=== PATIENT | male | born 1930 | race Caucasian/White ===

== ENCOUNTER → 2017-05-23 | Outpatient (CLI) | payer OTHER ==
[~2017-05-23] MED LIST: TNRUNK; ZCRUNK
--- NOTE | 2017-05-23 13:59 | DIAGNOSTIC IMAGING REPORT ---
LUMBAR SPINE W/O CONTRAST HISTORY: Back pain. Right leg pain. M48.062 R29.2 R29.898 TECHNIQUE: Multiplanar multisequence MRI of the lumbar spine was performed without the use of contrast. COMPARISON: None. FINDINGS: For the purpose of the report the L5-S1 disc space will be located on axial image 27 of 30. Signal characteristics of the vertebral bodies are unremarkable. Significant degenerative disc change L5-S1. Mild degenerative change throughout the remainder the lumbar region. L1-L2: No significant central canal or neural foraminal narrowing. L2-L3: Minimal broad-based disc bulge. Minimal impact anterior thecal sac. L3-L4: Mild/moderate multifactorial narrowing of the spinal canal. Mild narrowing neuroforamina bilaterally. L4-L5: Severe multifactorial narrowing of the spinal canal. Significant narrowing of the neuroforamina bilaterally. There is a combination of broad-based disc herniation and considerable hypertrophic change of the posterior elements. L5-S1: Mild right posterior bulging disc. Moderate compromise right neuroforamina. Left neural foramina is patent. IMPRESSION: 1. Severe multifactorial spinal stenosis L4-L5. 2. Considerable narrowing of the neuroforamina bilaterally. 3. Mild/moderate multifactorial narrowing of spinal canal at L3-L4. 4. Right posterior bulging disc L5-S1 5. Minimal broad-based disc bulge L2-L3. The above report was generated using voice recognition software. It may contain grammatical, syntax or spelling errors. Electronically signed by: Alejandro Dowling M.D. 05/23/2017 1:58 PM Dictated Date/Time: 05/23/2017 1:44 PM
== END | disposition home or self-care (01) ==
LOC: C.MRIBC 12:47
PROVIDERS: ATTEND Physician Assistant
DX: M48.062 Spinal stenosis, lumbar region with neurogenic claudication (principal); R29.2 Abnormal reflex; R29.898 Other symptoms and signs involving the musculoskeletal system

== ENCOUNTER 2021-09-03 15:30 | Inpatient (IN) ==
[2021-09-03] MEDS ORDERED: SODIUM CHLORIDE 0.9% 1000ML 500 ML IV ONE (16:05)
--- NOTE | 2021-09-03 16:09 | Emergency Department Note ---
Impression & Plan Generalized weakness, Elevated troponin, Acute confusion, Acute hyperglycemia ED Provider Note Name: SAVLADOR SANCHEZ Age: 89 Sex: M Arrives Via: Walk-In Informant: Patient, Daughter ED Provider: Jesus Lazo MD Chief Complaint: Weakness Impression: As per impressions above Medical Decision Makin-year-old gentleman with history of BPH, CKD, DM 2, hypertension and Alzheimer's dementia arrives for evaluation of worsening weakness over the last 48 hours. He did start a new Alzheimer's med about a week ago and initially had been doing well. Over the last 2 days though he has been quite weak somewhat confused and yesterday slipped to the floor with inability to get up. Due to this worsening weakness was sent to the ER for further evaluation. Patient no significant distress though does appear somewhat dehydrated. He was given some fluids and seems or perked up somewhat. His labs are remarkable for an elevated blood sugar as well as an elevated troponin. EKG is without any clear evidence of ischemia though there is some unusual T wave abnormalities anteriorly. He has no chest pain, shortness of breath, syncope and thus it seems unlikely this is ACS. However in the setting of these findings I do think further work-up is indicated. Patient is comfortable with this plan as his daughter. Patient is in no distress at time of hospitalization. We will hold off on blood thinners until further work-up is obtained. Prior Medical Record and Triage/Nursing Notes reviewed by Me Additional history obtained from chart & daughter Differentials:Infection, dehydration, metabolic abnormality, hypo/h yperglycemia, electrolyte disturbance, anemia, hypoxia, cardiac sources, intracerebral event, toxicologic, neurologic, as well as other pathologies. Vital Signs: reviewed and remarkable for no significant abnormalities Interventions: nss bolus Labs:Reviewed and remarkable for + trop, + glucose Imaging:X ray results are stated below per my interpretation: Chest: 1 view: No infiltrate, no effusion, normal cardiac border. Radiologist interpretation reviewed by me: ct head no acute findings EKG:Per My Interpretation: Indication weakness: NSR 71 bpm, qtc 419. Anterior T wave inversions non-specific. No Ectopy. No Ischemia. Compared to EKG 06/16/20, no significant changes besides anterior T wave inversions Cardiac/Tele Monitoring: Cardiac Monitoring: An Order was placed for continuous cardiac monitoring. The monitor shows a rate of 70 with a normal sinus rhythm. Consults:Dr Chele Gonzalez hospitalist Plan: Disposition:Hospitalization. Condition: Good History of Present Illness: 89-year-old gentleman arrives for evaluation of weakness. Patient with 48 hours worsening weakness and confusion. Yesterday he slid out of bed and was unable to get up. This is unusual for him as he is usually active mobile and able to interact without problems. Worsening exhaustion and confusion throughout the day. Associated with a runny nose and mild cough. He also notes he has been urinating more often. No fevers, chills, headache, neck pain, shortness of breath, chest pain, abdominal pain, back pain, nausea, vomiting, rashes, bleeding/bruising or other concerning signs or symptoms. No medications prior to arrival. Any exertion makes worse rest makes better. Denies previous issues with severe weakness like this before. Has been taking his medications as prescribed. As advised by medical team at [facility] to come to ER for further evaluation. Last COVID test was last week which was negative. ROS: See above HPI for pertinent positives & negatives. A total of 10 systems reviewed and were otherwise negative. Past Medical History:Hypertension, GERD, hyperlipidemia Past Surgical History:none Family History:non-contributory Social History:Lives at [facility], no smoking, no alcohol Home Medications:See Below Allergies:nkda Vitals:Blood Pressure: 142/79, Pulse 74, RR 18, T 36.5C, O2 93% on RA Physical Exam: GENERAL: Patient is tired appearing and in mild distress. EYES: No scleral icterus, unremarkable pupils. ENT: Mucous membranes dry, no nasal congestion. NECK: No masses appreciated, nomeningismus, trachea is midline. RESPIRATORY: No dyspnea. Clear to auscultation and equal bilaterally. No wheeze, no rhonchi. CARDIOVASCULAR: Regular rate and rhythm.No murmurs, rubs, gallops appreciated. GASTROINTESTINAL: Abdomen soft, non-tender, no peritonitis.Bowel sounds positive.No masses appreciated. BACK: No midline tenderness, no CVA tenderness EXTREMITIES: Normal motion all extremities, no cyanosis, no edema. NEUROLOGIC: Awake, slow speech, mild confusion, forgetful, no weakness of arms or legs, no facial weakness appreciated. SKIN: No rash, no jaundice, no diaphoresis. PSYCH: Appropriate GCS: 15 ED Course: Times/Reassessments: Does appear somewhat better after IV fluids though due to confusion and work-up findings I think is reasonable for hospitalization he and daughter agree. Jesus Lazo MD Past Med/Surg History Medical History (Updated 09/03/21 @ 20:27 by Jesus Lazo MD) Alzheimer's dementia BPH (benign prostatic hyperplasia) CKD (chronic kidney disease), stage III DM type 2 (diabetes mellitus, type 2) HTN (hypertension) Surgical History (Updated 09/03/21 @ 20:22 by THERESA Santos) No significant past surgical history Social History Smoking Status: Never smoker Preferred Language: Stateless Feels Safe at Home: Yes Allergies Allergies Allergy/AdvReac Type Severity Reaction Status Date / Time No Known Allergies Allergy Unverified 09/03/21 18:16 Home Meds Home Medications Medication Instructions Recorded Confirmed atenolol 25 mg tablet 25 mg PO DAILY 06/16/20 09/03/21 coenzyme Q10 30 mg capsule (CoQ-10) 0 mg PO DAILY 06/16/20 09/03/21 multivitamin 1 tab PO DAILY 06/16/20 09/03/21 aspirin 81 mg tablet 81 mg PO DAILY 09/03/21 09/03/21 cholecalciferol (vitamin D3) 25 0 mcg PO DAILY 09/03/21 09/03/21 mcg (1,000 unit) capsule cyanocobalamin (vitamin B-12) 500 0 mcg PO DAILY 09/03/21 09/03/21 mcg tablet donepezil 5 mg tablet 5 mg PO DAILY 09/03/21 09/03/21 escitalopram oxalate 10 mg tablet 10 mg PO DAILY 09/03/21 09/03/21 polyethylene glycol 3350 17 17 g PO DAILY PRN 09/03/21 09/03/21 gram/dose oral powder (Miralax) Results & Data (ED) Vital Signs Vital Signs - 24 hr 09/03/21 15:32 09/03/21 16:10 09/03/21 16:21 Temperature 36.5 C Temperature Source Temporal Artery Scan Pulse Rate 74 Pulse Rate [Right Finger] 69 Respiratory Rate 18 16 Respiratory Effort / Characteristics Non-Labored Spontaneous Non-Labored Respiratory Depth Normal Normal Respiratory Pattern Regular Blood Pressure 142/79 H Blood Pressure [Right Arm] 164/82 H Blood Pressure Mean 100 Blood Pressure Mean [Right Arm] 109 Blood Pressure Position Sitting Pulse Oximetry 93 95 Oxygen Delivery Method Room Air Room Air Sepsis Recent Fever Within 48 Hours No Sepsis New/Unexplained Change in Mental Status Yes Sepsis Action Taken by Nursing No Action Required 09/03/21 18:26 Temperature Temperature Source Pulse Rate Pulse Rate [Right Finger] 70 Respiratory Rate 18 Respiratory Effort / Characteristics Non-Labored Respiratory Depth Normal Respiratory Pattern Blood Pressure Blood Pressure [Right Arm] 170/88 H Blood Pressure Mean Blood Pressure Mean [Right Arm] 115 Blood Pressure Position Pulse Oximetry 93 Oxygen Delivery Method Sepsis Recent Fever Within 48 Hours Sepsis New/Unexplained Change in Mental Status Sepsis Action Taken by Nursing Laboratory Data Result diagrams: 09/03/21 16:00 09/03/21 16:00 Lab Results 09/03/21 09/03/21 09/03/21 Range/Units 16:00 16:00 16:00 WBC 16.07 H (4.8-10.8) K/uL RBC 4.84 (4.7-6.1) M/uL Hgb 15.7 (14.0-18.0) g/dL Hct 44.6 (42-52) % MCV 92.1 (80-100) fL MCH 32.4 (25-34) pg MCHC 35.2 (32-36) g/dL RDW Std Deviation 43.4 (36.4-46.3) fL RDW Coeff of Betsy 12.9 (11.5-14.5) % Plt Count 246 (130-400) K/uL MPV 10.1 (7.4-10.4) fL Immature Gran % (Auto) 0.6 % Neut % (Auto) 70.0 % Lymph % (Auto) 12.8 % [place] % (Auto) 15.7 % Eos % (Auto) 0.8 % Baso % (Auto) 0.1 % Neut # (Auto) 11.25 H (1.4-6.5) K/uL Lymph # (Auto) 2.06 (1.2-3.4) K/uL [place] # (Auto) 2.52 H (0.11-0.59) K/uL Eos # (Auto) 0.13 (0-0.5) K/uL Baso # (Auto) 0.02 (0-0.2) K/uL Immature Gran # (Auto) 0.09 H (0.00-0.02) K/uL Sodium 136 (136-145) mmol/L Potassium 4.4 (3.5-5.1) mmol/L Chloride 102 (98-107) mmol/L Carbon Dioxide 25 (21-32) mmol/L Anion Gap 9 (3-11) BUN 23 (6-23) mg/dl Creatinine 1.17 (0.6-1.4) mg/dl Est Cr Clr Drug Dosing Not Reportable Est GFR ( Amer) 63.7 ml/min Est GFR (Non-Af Amer) 54.9 ml/min BUN/Creatinine Ratio 19.7 (10-20) Glucose 247 H (70-99(Fasting)) mg/dl Calcium 9.8 (8.5-10.1) mg/dl Magnesium 1.9 (1.7-2.4) mg/dl Total Bilirubin 0.9 (0.2-1.0) mg/dl AST 21 (13-39) U/L ALT 15 (7-52) U/L Alkaline Phosphatase 92 (34-104) U/L Total Creatine Kinase (30-223) U/L Troponin I High Sens 110.5 H* (0-20) pg/ml Total Protein 6.6 (6.0-8.3) gm/dl Albumin 4.0 (3.4-5.0) gm/dl Globulin 2.6 (2.5-4.0) gm/dl Albumin/Globulin Ratio 1.5 (0.9-2) Procalcitonin (0-0.5) ng/ml Urine Color Urine Appearance (Clear) Urine pH (4.5-7.5) Ur Specific [place] (1.000-1.030) Urine Protein (Negative) Urine Glucose (UA) (Negative) Urine Ketones (Negative) Urine Blood (Negative) Urine Nitrite (Negative) Urine Bilirubin (Negative) Urine Urobilinogen (Negative) Ur Leukocyte Esterase (Negative) Urine WBC (Auto) (0-5) /hpf Urine RBC (Auto) (0-4) /hpf U Hyaline Cast (Auto) (0-5) /lpf U Epithel Cells (Auto) (0-5) /lpf Urine Bacteria (Auto) (Negative) SARS-CoV-2 (PCR) (Negative) Influenza Type A (PCR) (Neg) Influenza Type B (PCR) (Neg) RSV (RT-PCR) (Neg) 09/03/21 09/03/21 09/03/21 Range/Units 16:00 16:00 16:13 WBC (4.8-10.8) K/uL RBC (4.7-6.1) M/uL Hgb (14.0-18.0) g/dL Hct (42-52) % MCV (80-100) fL MCH (25-34) pg MCHC (32-36) g/dL RDW Std Deviation (36.4-46.3) fL RDW Coeff of Betsy (11.5-14.5) % Plt Count (130-400) K/uL MPV (7.4-10.4) fL Immature Gran % (Auto) % Neut % (Auto) % Lymph % (Auto) % [place] % (Auto) % Eos % (Auto) % Baso % (Auto) % Neut # (Auto) (1.4-6.5) K/uL Lymph # (Auto) (1.2-3.4) K/uL [place] # (Auto) (0.11-0.59) K/uL Eos # (Auto) (0-0.5) K/uL Baso # (Auto) (0-0.2) K/uL Immature Gran # (Auto) (0.00-0.02) K/uL Sodium (136-145) mmol/L Potassium (3.5-5.1) mmol/L Chloride (98-107) mmol/L Carbon Dioxide (21-32) mmol/L Anion Gap (3-11) BUN (6-23) mg/dl Creatinine (0.6-1.4) mg/dl Est Cr Clr Drug Dosing Est GFR ( Amer) ml/min Est GFR (Non-Af Amer) ml/min BUN/Creatinine Ratio (10-20) Glucose (70-99(Fasting)) mg/dl Calcium (8.5-10.1) mg/dl Magnesium (1.7-2.4) mg/dl Total Bilirubin (0.2-1.0) mg/dl AST (13-39) U/L ALT (7-52) U/L Alkaline Phosphatase (34-104) U/L Total Creatine Kinase 196 (30-223) U/L Troponin I High Sens (0-20) pg/ml Total Protein (6.0-8.3) gm/dl Albumin (3.4-5.0) gm/dl Globulin (2.5-4.0) gm/dl Albumin/Globulin Ratio (0.9-2) Procalcitonin 0.19 (0-0.5) ng/ml Urine Color Urine Appearance (Clear) Urine pH (4.5-7.5) Ur Specific [place] (1.000-1.030) Urine Protein (Negative) Urine Glucose (UA) (Negative) Urine Ketones (Negative) Urine Blood (Negative) Urine Nitrite (Negative) Urine Bilirubin (Negative) Urine Urobilinogen (Negative) Ur Leukocyte Esterase (Negative) Urine WBC (Auto) (0-5) /hpf Urine RBC (Auto) (0-4) /hpf U Hyaline Cast (Auto) (0-5) /lpf U Epithel Cells (Auto) (0-5) /lpf Urine Bacteria (Auto) (Negative) SARS-CoV-2 (PCR) NEGATIVE (Negative) Influenza Type A (PCR) Negative (Neg) Influenza Type B (PCR) Negative (Neg) RSV (RT-PCR) Negative (Neg) 09/03/21 Range/Units 16:30 WBC (4.8-10.8) K/uL RBC (4.7-6.1) M/uL Hgb (14.0-18.0) g/dL Hct (42-52) % MCV (80-100) fL MCH (25-34) pg MCHC (32-36) g/dL RDW Std Deviation (36.4-46.3) fL RDW Coeff of Betsy (11.5-14.5) % Plt Count (130-400) K/uL MPV (7.4-10.4) fL Immature Gran % (Auto) % Neut % (Auto) % Lymph % (Auto) % [place] % (Auto) % Eos % (Auto) % Baso % (Auto) % Neut # (Auto) (1.4-6.5) K/uL Lymph # (Auto) (1.2-3.4) K/uL [place] # (Auto) (0.11-0.59) K/uL Eos # (Auto) (0-0.5) K/uL Baso # (Auto) (0-0.2) K/uL Immature Gran # (Auto) (0.00-0.02) K/uL Sodium (136-145) mmol/L Potassium (3.5-5.1) mmol/L Chloride (98-107) mmol/L Carbon Dioxide (21-32) mmol/L Anion Gap (3-11) BUN (6-23) mg/dl Creatinine (0.6-1.4) mg/dl Est Cr Clr Drug Dosing Est GFR ( Amer) ml/min Est GFR (Non-Af Amer) ml/min BUN/Creatinine Ratio (10-20) Glucose (70-99(Fasting)) mg/dl Calcium (8.5-10.1) mg/dl Magnesium (1.7-2.4) mg/dl Total Bilirubin (0.2-1.0) mg/dl AST (13-39) U/L ALT (7-52) U/L Alkaline Phosphatase (34-104) U/L Total Creatine Kinase (30-223) U/L Troponin I High Sens (0-20) pg/ml Total Protein (6.0-8.3) gm/dl Albumin (3.4-5.0) gm/dl Globulin (2.5-4.0) gm/dl Albumin/Globulin Ratio (0.9-2) Procalcitonin (0-0.5) ng/ml Urine Color Dark Yellow Urine Appearance Clear (Clear) Urine pH 5.0 (4.5-7.5) Ur Specific [place] 1.039 H (1.000-1.030) Urine Protein 1+ H (Negative) Urine Glucose (UA) 3+ H (Negative) Urine Ketones 1+ H (Negative) Urine Blood Negative (Negative) Urine Nitrite Negative (Negative) Urine Bilirubin Negative (Negative) Urine Urobilinogen Negative (Negative) Ur Leukocyte Esterase Negative (Negative) Urine WBC (Auto) 1-5 (0-5) /hpf Urine RBC (Auto) 0-4 (0-4) /hpf U Hyaline Cast (Auto) 1-5 (0-5) /lpf U Epithel Cells (Auto) 5-10 H (0-5) /lpf Urine Bacteria (Auto) Negative (Negative) SARS-CoV-2 (PCR) (Negative) Influenza Type A (PCR) (Neg) Influenza Type B (PCR) (Neg) RSV (RT-PCR) (Neg) Administered Medications Discontinued Medications Sodium Chloride (Nss 1000ml) 500 mls @ 999 mls/hr IV .Q31M ONE Stop: 09/03/21 16:35 Last Infusion: 09/03/21 16:40 Dose: 0 mls/hr Documented by: [id number] Admin: 09/03/21 16:08 Dose: 999 mls/hr Documented by: [id number] Ceftriaxone Sodium 2,000 mg/ (Dextrose) 70 mls @ 140 mls/hr IV 1900 ONE Stop: 09/03/21 19:29 Last Infusion: 09/03/21 19:47 Dose: 0 mls/hr Documented by: [id number] Admin: 09/03/21 19:13 Dose: 140 mls/hr Documented by: [id number] Imaging Data Radiologist's Impression: Head CT 09/03/21 16:05 CT SCAN OF THE BRAIN WITHOUT IV CONTRAST CLINICAL HISTORY: Fall. Change in mental status. COMPARISON STUDY: No priors. TECHNIQUE: Unenhanced axial CT scan of the brain is performed from the vertex to the skull base. A dose lowering technique was utilized adhering to the principles of ALARA. CT DOSE: 614.27 mGy.cm FINDINGS: Brain parenchyma: There is age-related involutional change noting mild to moderate subcortical and periventricular microangiopathic disease. There is no hemorrhage, mass effect, or evidence of acute territorial ischemia by CT criteria. 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 [place]-white matter differentiation is preserved. No extra-axial fluid collection is seen. 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 There may be a small associated cavernoma on image #22. Ventricles, sulci, cisterns: Prominent secondary to involutional change. Intracranial vasculature: There is atherosclerotic calcification of the cavernous carotid and vertebral arteries. Calvarium: The skeletal structures are osteopenic. No depressed calvarial fracture is identified. Sinuses and mastoids: There is mild mucosal thickening in the left maxillary antrum. The remaining visualized paranasal sinuses are clear. The mastoid air cells are well pneumatized. Cerumen is noted in the external auditory canals. Orbits: The bony orbits are grossly intact. There are bilateral ocular lens implants. IMPRESSION: 1. There is no hemorrhage, mass effect, or evidence of acute territorial ischemia by CT criteria. 2. 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 This is of doubtful acute significance. If clinically warranted this could be further evaluated by MRI. ACT 112: Negative or not required by law. Electronically signed by: Gagandeep Villavicencio M.D. 09/03/2021 4:48 PM Chest X-Ray 09/03/21 18:07 XR chest 1V portable CLINICAL HISTORY: cough. COMPARISON STUDY: No previous studies for comparison. TECHNIQUE: 1 view of the chest FINDINGS: Single frontal view of the chest demonstrates the cardiomediastinal silhouette to be within normal limits. There is a decreased inspiratory effort with elevation of the hemidiaphragms and crowding of the bronchovascular markings at the lung bases and centrally. The lungs are clear of alveolar opacities. There is no evidence for pleural effusion. There is no evidence for vascular congestion. There is no acute osseous pathology. IMPRESSION: 1. There is a decreased inspiratory effort with otherwise no acute chest disease. ACT 112: Negative or not required by law. Electronically signed by: Yan Chao M.D. 09/03/2021 6:37 PM Discharge Plan Visit Data Chief Complaint: Fall Stated Complaint: FALL. DISORIENTED ED Provider: Jesus Lazo Discharge Problem: Generalized weakness, Elevated troponin, Acute confusion, Acute hyperglycemia Patient Disposition: Admitted As Inpatient Discharge Instructions Interventions: ED Discharge Assessment Last Done: 09/03/21 19:45
[2021-09-03 16:25] LABS: Basophils # (auto) 0.02 K/uL (0-0.2); Basophils % (auto) 0.1 %; Eosinophils # (auto) 0.13 K/uL (0-0.5); Eosinophils % (auto) 0.8 %; Hematocrit (blood only) 44.6 % (42-52); Hemoglobin 15.7 g/dL (14.0-18.0); Immature Granulocytes # (auto) 0.09 K/uL (0.00-0.02); Immature Granulocytes % (auto) 0.6 %; Lymphocytes # (auto) 2.06 K/uL (1.2-3.4); Lymphocytes % (auto) 12.8 %; Mean Corpuscular Hemoglobin 32.4 pg (25-34); Mean Corpuscular Hgb Conc 35.2 g/dL (32-36); Mean Corpuscular Volume 92.1 fL (80-100); Mean Platelet Volume 10.1 fL (7.4-10.4); Monocytes # (auto) 2.52 K/uL (0.11-0.59); Monocytes % (auto) 15.7 %; Neutrophils # (auto) 11.25 K/uL (1.4-6.5); Platelet Count 246 K/uL (130-400); RDW Coefficient of Variation 12.9 % (11.5-14.5); RDW Standard Deviation 43.4 fL (36.4-46.3); Red Blood Count 4.84 M/uL (4.7-6.1); White Blood Count 16.07 K/uL (4.8-10.8)
[2021-09-03 16:50] LABS: Alanine Aminotransferase 15 U/L (7-52); Albumin Globulin Ratio 1.5 (0.9-2); Alkaline Phosphatase 92 U/L (34-104); Anion Gap 9 (3-11); Aspartate Aminotransferase 21 U/L (13-39); BUN Creatinine Ratio 19.7 (10-20); Bilirubin,Total 0.9 mg/dl (0.2-1.0); Blood Urea Nitrogen 23 mg/dl (6-23); Calcium 9.8 mg/dl (8.5-10.1); Carbon Dioxide 25 mmol/L (21-32); Chloride 102 mmol/L (98-107); Est GFR (African American) 63.7 ml/min; Est GFR (Non-African American) 54.9 ml/min; Globulin 2.6 gm/dl (2.5-4.0); Glucose 247 mg/dl (70-99(Fasting)); Potassium 4.4 mmol/L (3.5-5.1); Sodium 136 mmol/L (136-145); Total Protein 6.6 gm/dl (6.0-8.3)
--- NOTE | 2021-09-03 16:50 | CT Scan Report ---
CT SCAN OF THE BRAIN WITHOUT IV CONTRAST CLINICAL HISTORY: Fall. Change in mental status. COMPARISON STUDY: No priors. TECHNIQUE: Unenhanced axial CT scan of the brain is performed from the vertex to the skull base. A do se lowering technique was utilized adhering to the principles of ALARA. CT DOSE: 614.27 mGy.cm FINDINGS: Brain parenchyma: There is age-related involutional change noting mild to moderate subcortical and pe riventricular microangiopathic disease. There is no hemorrhage, mass effect, or evidence of acute ter ritorial ischemia by CT criteria. Small chronic lacunar infarcts are noted in the left thalamus and t he right cerebellar hemisphere. [place]-white matter differentiation is preserved. No extra-axial fluid collection is seen. 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 There may be a small associated cavernoma on image #22. Ventricles, sulci, cisterns: Prominent secondary to involutional change. Intracranial vasculature: There is atherosclerotic calcification of the cavernous carotid and vertebr al arteries. Calvarium: The skeletal structures are osteopenic. No depressed calvarial fracture is identified. Sinuses and mastoids: There is mild mucosal thickening in the left maxillary antrum. The remaining vi sualized paranasal sinuses are clear. The mastoid air cells are well pneumatized. Cerumen is noted in the external auditory canals. Orbits: The bony orbits are grossly intact. There are bilateral ocular lens implants. IMPRESSION: 1. There is no hemorrhage, mass effect, or evidence of acute territorial ischemia by CT criteria. 2. 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 This is of doubtful acute significance. If clinically warranted thi s could be further evaluated by MRI. ACT 112: Negative or not required by law. Electronically signed by: Gagandeep Villavicencio M.D. 09/03/2021 4:48 PM
[2021-09-03 16:53] LABS: Appearance Urine Clear (Clear); Bacteria Urine Automated Negative (Negative); Bilirubin Urine Negative (Negative); Blood Urine Negative (Negative); Color Urine Dark Yellow; Glucose Urine UA 3+ (Negative); Ketones Urine 1+ (Negative); Leukocyte Esterase Urine Negative (Negative); Nitrite Urine Negative (Negative); Protein Urine 1+ (Negative); RBC Urine Automated 0-4 /hpf (0-4); Specific Gravity Urine 1.039 (1.000-1.030); Urobilinogen Urine Negative (Negative)
[2021-09-03 17:03] LABS: Influenza A virus by PCR Negative (Neg); Influenza B virus by PCR Negative (Neg); RSV by PCR Negative (Neg); SARS CoV2 RNA(COVID-19) InHosp NEGATIVE (Negative)
[2021-09-03 17:10] LABS: Troponin I High Sensitivity 110.5 pg/ml (0-20)
[2021-09-03 17:13] LABS: Magnesium 1.9 mg/dl (1.7-2.4)
--- NOTE | 2021-09-03 18:29 | Communication Note ---
Date of Service: September 03, 2021 History and physical exam performed by me. Patient presented from independent living for fall yesterday and disorientation today. History provided by daughter who was at bedside. Patient has history of memory problems and recently diagnosis of Alzheimer's on donepezil. Started having upper respiratory symptoms [rhinorrhea, sore throat and cough that was initially dry and nonproductive] for the past week. Daughter reports that today he was more disoriented, weaker than usual and had an incident of urinary incontinence which is unusual for him. Exam, General: Elderly man in no distress, coughing Eyes: PERRL, conjunctivae normal, not pale, anicteric sclerae, EOM intact bilaterally ENMT: External ear and nose normal, oropharynx normal Respiratory: Normal respiratory effort, +cough, no respiratory distress, lungs clear to auscultation, no crackles and no wheezes Cardiovascular: RRR S1 S2 Gastrointestinal (Abdomen): Abdomen is not distended, soft, non-tender to palpation, no guarding, no palpable hepatosplenomegaly, normal bowel sounds Musculoskeletal: No pedal edema Genitourinary: No CVA tenderness Neurologic: PERRL, EOMI, No focal weakness, sensation grossly intact Psychiatric: Alert and oriented to person, place (knows he is in a hospital but could not recall name) and month only, euthymic affect, no depresse d affect Labs notable for WBC of 16,000, blood glucose of 247, troponin at bedtime of 110.5. UA showed specific gravity of 1.039, 1+ urine protein, 3+ urine glucose, 1+ urine ketones COVID/flu/RSV were negative CT head did not show any acute abnormality but reported the small abnormalities vessel in right frontal sulcus which possibly could be a cavernoma. Upper respiratory infection Hyperglycemia Fall Chest x-ray Check procalcitonin Give ceftriaxone azithromycin for now while waiting for chest x-ray and procalcitonin Check hemoglobin A1c Monitor blood glucose Insulin sliding scale PT/OT evaluation Agree with other plans as detailed by Roseann CARDENAS
--- NOTE | 2021-09-03 18:38 | XRay Report ---
XR chest 1V portable CLINICAL HISTORY: cough. COMPARISON STUDY: No previous studies for comparison. TECHNIQUE: 1 view of the chest FINDINGS: Single frontal view of the chest demonstrates the cardiomediastinal silhouette to be within normal li mits. There is a decreased inspiratory effort with elevation of the hemidiaphragms and crowding of th e bronchovascular markings at the lung bases and centrally. The lungs are clear of alveolar opacities . There is no evidence for pleural effusion. There is no evidence for vascular congestion. There is n o acute osseous pathology. IMPRESSION: 1. There is a decreased inspiratory effort with otherwise no acute chest disease. ACT 112: Negative or not required by law. Electronically signed by: Yan Chao M.D. 09/03/2021 6:37 PM
[2021-09-03] MEDS ORDERED: cefTRIAXone SODIUM 1,000 MG in DEXTROSE 5% 50 ML IV ONE (18:46)
[2021-09-03] MEDS ORDERED: cefTRIAXone SODIUM 2,000 MG in DEXTROSE 5% 50 ML IV ONE (19:00)
--- NOTE | 2021-09-03 20:33 | History & Physical Report ---
Date of Service September 03, 2021 Assessment & Plan (1) Altered mental status: (2) Fall: Plan: Admit to telemetry Patient presenting from independent living at [facility] for evaluation of altered mental status, fall out of bed yesterday In the ED, labs show WBC 16 K, glucose 247, troponin 110 AMS and generalized weakness possibly due to dehydration from hyperglycemia and/or URI --management as below PT/OT (3) Acute hyperglycemia: Plan: Glucose 247 Chart history of DM type II, daughter states that patient has never taken diabetic medication Hgb A1c 7.4 02/2020, update with a.m. labs NovoLog per protocol while hospitalized, may need low-dose long-term agent however would allow for more labile control due to patient's advanced age (4) Elevated troponin: Plan: HS troponin 110 No reports of chest pain, EKG without acute ST changes Serial troponin Resting echo (5) URI (upper respiratory infection): Plan: Cough, sore throat, rhinorrhea, x 1 week Given leukocytosis, will start antibiotics --IV ceftriaxone and Doxy this evening, transition to p.o. Augmentin tomorrow Procalcitonin 0.19 No infiltrate noted on CXR (6) HTN (hypertension): Plan: BP controlled on arrival however has been steadily climbing this evening --may be situational Continue home dose of atenolol, make adjustments as needed PRN IV hydralazine (7) Alzheimer's dementia: Plan: Continue donepezil (8) DVT prophylaxis: Plan: SQ Lovenox Admission and Anticipated Discharge Date Admission Date: September 03, 2021 History of Present Illness Chief Complaint: Altered mental status, fall Primary Care Provider: [facility] 89-year-old male with [facility] CKD stage III, HTN, BPH, Alzheimer's dementia, and other problems listed below who presents the ED for evaluation of altered mental status and a fall. Patient's daughter is at the bedside who provides some history. Apparently yesterday morning, patient slid out of bed when trying to get up in the morning. He was disoriented and did not press his life alert button. Daughter states that he was disoriented for most of the day yesterday however improved by evening. This morning, patient was again disoriented. He was then brought to the ED for further evaluation. Over the past 1 week, patient has had sinus congestion, rhinorrhea, sore throat, cough. No fevers or chills reported. No other symptoms reported, history limited due to patient's memory issues. In the ED, labs show WBC 16 K, glucose 247, troponin 110. Head CT negative for acute findings, CXR negative for acute cardiopulmonary findings. Patient was given IVF. Allergies Allergy/AdvReac Type Severity Reaction Status Date / Time No Known Allergies Allergy Unverified 09/03/21 18:16 Home Medications Medication Instructions Recorded Confirmed Type atenolol 25 mg tablet 25 mg PO DAILY 06/16/20 09/03/21 History coenzyme Q10 30 mg capsule (CoQ-10) 0 mg PO DAILY 06/16/20 09/03/21 History multivitamin 1 tab PO DAILY 06/16/20 09/03/21 History aspirin 81 mg tablet 81 mg PO DAILY 09/03/21 09/03/21 History cholecalciferol (vitamin D3) 25 0 mcg PO DAILY 09/03/21 09/03/21 History mcg (1,000 unit) capsule cyanocobalamin (vitamin B-12) 500 0 mcg PO DAILY 09/03/21 09/03/21 History mcg tablet donepezil 5 mg tablet 5 mg PO DAILY 09/03/21 09/03/21 History escitalopram oxalate 10 mg tablet 10 mg PO DAILY 09/03/21 09/03/21 History polyethylene glycol 3350 17 17 g PO DAILY PRN 09/03/21 09/03/21 History gram/dose oral powder (Miralax) Past Med/Surg History Medical History Alzheimer's dementia BPH (benign prostatic hyperplasia) CKD (chronic kidney disease), stage III DM type 2 (diabetes mellitus, type 2) HTN (hypertension) Surgical History No significant past surgical history Family History Brother Diabetes Social History Smoking Status: Never smoker Hx Alcohol Use: No Hx Substance Use: No Preferred Language: Azerbaijani Communication Ability: disoriente Interior Design Consultant Required: No Beliefs That Will Affect Care: None Current Living Situation: Personal Care Facility Current Living Situation Comment: pt lives at [facility] Feels Safe at Home: Yes Safety Concerns: Feels Safe At This Time Assistive Devices: Glasses Review of Systems Review of Systems: Reviewed with patient however somewhat unreliable due to memory issues Physical Exam Physical Exam: please refer to Dr. Jacobs's addendum for phyiscal exam Results & Data Results & Data ([facility]) Vital Signs (Past 12 Hours) Vital Signs Temp Pulse Pulse Resp BP BP Pulse Ox 09/03/21 18:26 70 18 170/88 H 93 09/03/21 16:21 164/82 H 09/03/21 16:10 69 16 95 09/03/21 15:32 36.5 C 74 18 142/79 H 93 Laboratory Results Short CBC 09/03/21 Range/Units 16:00 WBC 16.07 H (4.8-10.8) K/uL Hgb 15.7 (14.0-18.0) g/dL Hct 44.6 (42-52) % Plt Count 246 (130-400) K/uL BMP 09/03/21 16:00 Sodium 136 Potassium 4.4 Chloride 102 Carbon Dioxide 25 BUN 23 Creatinine 1.17 Glucose 247 H Calcium 9.8 Cardiac Enzymes 09/03/21 Range/Units 16:00 Total Creatine Kinase 196 (30-223) U/L Liver Function 09/03/21 Range/Units 16:00 Total Bilirubin 0.9 (0.2-1.0) mg/dl AST 21 (13-39) U/L ALT 15 (7-52) U/L Alkaline Phosphatase 92 (34-104) U/L Albumin 4.0 (3.4-5.0) gm/dl Urine 09/03/21 Range/Units 16:30 Urine Color Dark Yellow Urine Appearance Clear (Clear) Urine pH 5.0 (4.5-7.5) Ur Specific [place] 1.039 H (1.000-1.030) Urine Protein 1+ H (Negative) Urine Glucose (UA) 3+ H (Negative) Diagnostic Findings Head CT 09/03/21 16:05 CT SCAN OF THE BRAIN WITHOUT IV CONTRAST CLINICAL HISTORY: Fall. Change in mental status. COMPARISON STUDY: No priors. TECHNIQUE: Unenhanced axial CT scan of the brain is performed from the vertex to the skull base. A dose lowering technique was utilized adhering to the principles of ALARA. CT DOSE: 614.27 mGy.cm FINDINGS: Brain parenchyma: There is age-related involutional change noting mild to moderate subcortical and periventricular microangiopathic disease. There is no hemorrhage, mass effect, or evidence of acute territorial ischemia by CT criteria. 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 [place]-white matter differentiation is preserved. No extra-axial fluid collection is seen. 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 There may be a small associated cavernoma on image #22. Ventricles, sulci, cisterns: Prominent secondary to involutional change. Intracranial vasculature: There is atherosclerotic calcification of the cavernous carotid and vertebral arteries. Calvarium: The skeletal structures are osteopenic. No depressed calvarial fracture is identified. Sinuses and mastoids: There is mild mucosal thickening in the left maxillary antrum. The remaining visualized paranasal sinuses are clear. The mastoid air cells are well pneumatized. Cerumen is noted in the external auditory canals. Orbits: The bony orbits are grossly intact. There are bilateral ocular lens implants. IMPRESSION: 1. There is no hemorrhage, mass effect, or evidence of acute territorial ischemia by CT criteria. 2. 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 This is of doubtful acute significance. If clinically warranted this could be further evaluated by MRI. ACT 112: Negative or not required by law. Electronically signed by: Gagandeep Villavicencio M.D. 09/03/2021 4:48 PM Chest X-Ray 09/03/21 18:07 XR chest 1V portable CLINICAL HISTORY: cough. COMPARISON STUDY: No previous studies for comparison. TECHNIQUE: 1 view of the chest FINDINGS: Single frontal view of the chest demonstrates the cardiomediastinal silhouette to be within normal limits. There is a decreased inspiratory effort with elevation of the hemidiaphragms and crowding of the bronchovascular markings at the lung bases and centrally. The lungs are clear of alveolar opacities. There is no evidence for pleural effusion. There is no evidence for vascular congestion. There is no acute osseous pathology. IMPRESSION: 1. There is a decreased inspiratory effort with otherwise no acute chest disease. ACT 112: Negative or not required by law. Electronically signed by: Yan Chao M.D. 09/03/2021 6:37 PM Code Status & VTE Plan Code Status Patient is a full code as per Dr. Jacobs's discussion with patient's daughter, Florence, at the bedside. Supervising Physician Co-Signing Physician Notes Date of Service: September 03, 2021 History and physical exam performed by me. Patient presented from independent living for fall yesterday and disorientation today. History provided by daughter who was at bedside. Patient has history of memory problems and recently diagnosis of Alzheimer's on donepezil. Started having upper respiratory symptoms [rhinorrhea, sore throat and cough that was initially dry and nonproductive] for the past week. Daughter reports that today he was more disoriented, weaker than usual and had an incident of urinary incontinence which is unusual for him. Exam, General: Elderly man in no distress, coughing Eyes: PERRL, conjunctivae normal, not pale, anicteric sclerae, EOM intact bilaterally ENMT: External ear and nose normal, oropharynx normal Respiratory: Normal respiratory effort, +cough, no respiratory distress, lungs clear to auscultation, no crackles and no wheezes Cardiovascular: RRR S1 S2 Gastrointestinal (Abdomen): Abdomen is not distended, soft, non-tender to palpation, no guarding, no palpable hepatosplenomegaly, normal bowel sounds Musculoskeletal: No pedal edema Genitourinary: No CVA tenderness Neurologic: PERRL, EOMI, No focal weakness, sensation grossly intact Psychiatric: Alert and oriented to person, place (knows he is in a hospital but could not recall name) and month only, euthymic affect, no depressed affect Labs notable for WBC of 16,000, blood glucose of 247, troponin at bedtime of 110.5. UA showed specific gravity of 1.039, 1+ urine protein, 3+ urine glucose, 1+ urine ketones COVID/flu/RSV were negative CT head did not show any acute abnormality but reported the small abnormalities vessel in right frontal sulcus which possibly could be a cavernoma. Upper respiratory infection Hyperglycemia Fall Chest x-ray Check procalcitonin Give ceftriaxone azithromycin for now while waiting for chest x-ray and procalcitonin Check hemoglobin A1c Monitor blood glucose Insulin sliding scale PT/OT evaluation Agree with other plans as detailed by Roseann CARDENAS
[2021-09-03] MEDS ORDERED: SODIUM CHLORIDE 0.9% 1000ML 1,000 ML IV SCH (20:35)
[2021-09-03] MEDS ORDERED: GLUCOSE 40% GEL 15 GM TUBE PO PRN (20:35)
[2021-09-03] MEDS ORDERED: ACETAMINOPHEN 325 MG TAB PO PRN (20:35)
[2021-09-03] MEDS ORDERED: GLUCAGON FOR INJ 1 MG VIAL SQ PRN (20:35)
[2021-09-03] MEDS ORDERED: GLUCOSE 10 TABS/TUBE PO PRN (20:35)
[2021-09-03] MEDS ORDERED: CARBOHYDRATES FOR HYPOGLYCEMIA PO PRN (20:35)
[2021-09-03] MEDS ORDERED: POLYETHYLENE (MIRALAX) 17 GM PACK PO PRN (20:35)
[2021-09-03] MEDS ORDERED: DEXTROSE 50% 50 ML SYRINGE IV PRN (20:35)
[2021-09-03] MEDS: DOXYCYCLINE HYCLATE 100 MG in DEXTROSE 5% 100 ML IV ONE ×2 (20:45→20:52)
[2021-09-03] MEDS: INSULIN ASPART PER UNIT SC SCH (21:34)
[2021-09-03] MEDS: hydrALAZINE HCL 20 MG/ML VIAL IV PRN (23:06)
[2021-09-04] MEDS ORDERED: ATENOLOL 50 MG TABLET PO SCH (04:30)
[2021-09-04 07:06] LABS: Hematocrit (blood only) 42.5 % (42-52); Hemoglobin 14.9 g/dL (14.0-18.0); Mean Corpuscular Hemoglobin 32.2 pg (25-34); Mean Corpuscular Hgb Conc 35.1 g/dL (32-36); Mean Corpuscular Volume 91.8 fL (80-100); Mean Platelet Volume 10.1 fL (7.4-10.4); Platelet Count 232 K/uL (130-400); RDW Coefficient of Variation 12.9 % (11.5-14.5); RDW Standard Deviation 42.9 fL (36.4-46.3); Red Blood Count 4.63 M/uL (4.7-6.1); White Blood Count 15.47 K/uL (4.8-10.8)
[2021-09-04 07:21] LABS: Estimated Average Glucose 166 mg/dl; Hemoglobin A1C 7.4 % (4.5-5.6)
[2021-09-04 07:31] LABS: BUN Creatinine Ratio 18.4 (10-20); Calcium 8.9 mg/dl (8.5-10.1); Creatinine Clr Calc Pharmacy 59.5 ml/min; Est GFR (African American) 88.7 ml/min; Est GFR (Non-African American) 76.5 ml/min; Potassium 3.7 mmol/L (3.5-5.1)
[2021-09-04] MEDS: INSULIN ASPART PER UNIT SC SCH ×4 (07:53→21:01)
[2021-09-04] MEDS: DONEPEZIL HCL 5 MG TAB PO SCH (07:54)
[2021-09-04] MEDS: ESCITALOPRAM OXALATE 10 MG TAB PO SCH (07:54)
[2021-09-04] MEDS: ASPIRIN 81 MG ECTAB PO SCH (07:54)
[2021-09-04] MEDS: AMOXICILLIN/CLAVULANATE 875 MG TAB PO SCH ×2 (07:54→20:26)
[2021-09-04] MEDS ORDERED: ATENOLOL 25 MG TABLET PO SCH (09:00)
[2021-09-04] MEDS ORDERED: POTASSIUM CHLORIDE CRTAB 20 MEQ TABCR PO ONE (09:25)
[2021-09-04] MEDS: LOSARTAN POTASSIUM 25 MG TAB PO SCH (10:34)
[2021-09-04] MEDS: carvediloL 6.25 MG TAB PO SCH ×2 (10:34→20:26)
[2021-09-04] MEDS ORDERED: GADOBUTROL 65ML VIAL IV ONE (12:59)
--- NOTE | 2021-09-04 13:35 | Magnetic Resonance Report ---
MRI OF THE BRAIN COMBO CLINICAL HISTORY: Change in mental status. Dementia. COMPARISON STUDY: CT of the brain dated 09/03/2021. TECHNIQUE: MRI of the brain was performed utilizing various T1 and T2-weighted sequences in the axial , sagittal, and coronal planes. Contrast-enhanced sequences were acquired following the administratio n of 8 cc of Gadavist. FINDINGS: Brain parenchyma: There is age-related involutional change noting moderate subcortical and periventri cular microangiopathic disease. There is no hemorrhage or mass effect. There is no restricted diffusi on to suggest acute ischemia. No enhancing mass lesion is identified on the postcontrast images. Warehouse General Laborer licha lacunar infarcts are noted in both cerebellar hemispheres. Trevizo-white matter differentiation is p reserved. No extra-axial fluid collection is seen. The cerebellar tonsils are normal in configuration . 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 Ventricles, sulci, and cisterns: Prominent secondary to involutional change. Pituitary and sella: Unremarkable. Intracranial vasculature: Normal flow voids are maintained at the skull base. Orbits: The bony orbits are grossly intact. Orbital contents are normal in appearance noting bilatera l ocular lens implants. Sinuses and mastoids: There is moderate mucosal thickening and an air-fluid level in the left maxilla ry antrum. The remaining paranasal sinuses and the mastoid air cells are clear. Calvarium: Unremarkable. Cervical cord: Partially visualized cervical spinal cord is normal in morphology and signal intensity . IMPRESSION: 1. No acute intracranial abnormality. 2. 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 ACT 112: Negative or not required by law. Electronically signed by: Gagandeep Villavicencio M.D. 09/04/2021 1:34 PM
--- NOTE | 2021-09-04 16:27 | Hospitalist Progress Note ---
Date of Service September 04, 2021 Assessment & Plan (1) Altered mental status: Plan: H/O Dementia Likely acute metabolic encephalopathy in setting of infection --MRI Brain:No acute intracranial abnormality. 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 Reorient frequently (2) Fall: Plan: Likely due to generalized weakness due to comorbidities PT/OT Fall precautions (3) Acute hyperglycemia: Plan: H/O DM type II: Not on meds Hgb A1c 7.4 NovoLog per protocol while hospitalized labile control of BGs due to patient's advanced age Need to be initiated on oral meds upon discharge (4) Elevated troponin: Plan: Likely due to uncontrolled hypertension Troponin trended down increased Echo showed no wall motion abnormality Patient denies chest pain (5) URI (upper respiratory infection): Plan: Acute bronchitis CXR:There is a decreased inspiratory effort with otherwise no acute chest disease. Procalcitonin 0.19 Negative COVID Screen Continue Augmentin Saturating well on room air (6) HTN (hypertension): Plan: Uncontrolled Hypertensive urgency Discontinue atenolol Started on carvedilol, losartan Adjust medications as needed (7) Alzheimer's dementia: Plan: Continue donepezil Bladder Stone Chronic (8) DVT prophylaxis: Plan: SQ Lovenox Admission and Anticipated Discharge Date Admission Date: September 03, 2021 Subjective Patient is seen and examined at bedside Poor historian secondary to dementia States having mild cough with greenish expectoration Had physical therapy evaluated and Discussed with patient's family at bedside Denies any chest pain, shortness of breath, dizziness, nausea, abdominal pain Review of Systems Review of Systems: All systems reviewed & are unremarkable except as noted in Subjective Physical Exam Physical Exam: Physical Exam: Vitals signs as noted above General Appearance:Moderately built and nourished, Elderly, no apparent distress Head: normocephalic, Atraumatic Eyes: normal inspection, EOMI Neck: supple, Trachea midline Respiratory/Chest: Normal breath sounds, CTA, No accessory muscle use Cardiovascular: S1, S2, No murmur Abdomen/GI:Soft, Non tender, Bowel sounds present Extremities/Musculoskeletal:normal inspection, Trace edema Neurologic/Psych:AAOX1, grossly no focal neurological deficits Skin: normal color, warm Results & Data Results & Data ([facility]) Vital Signs (Past 12 Hours) Vital Signs Temp Pulse Pulse Resp BP BP Pulse Ox 09/04/21 16:00 66 09/04/21 11:16 36.9 C 78 18 130/73 94 09/04/21 08:20 79 09/04/21 07:01 37.6 C H 77 18 177/83 H 180/88 H 95 Laboratory Results Short CBC 09/03/21 09/04/21 Range/Units 16:00 06:04 WBC 16.07 H 15.47 H (4.8-10.8) K/uL Hgb 15.7 14.9 (14.0-18.0) g/dL Hct 44.6 42.5 (42-52) % Plt Count 246 232 (130-400) K/uL BMP 09/03/21 09/04/21 16:00 06:04 Sodium 136 133 L Potassium 4.4 3.7 Chloride 102 102 Carbon Dioxide 25 23 BUN 23 16 Creatinine 1.17 0.87 D Glucose 247 H 249 H Calcium 9.8 8.9 Cardiac Enzymes 09/03/21 Range/Units 16:00 Total Creatine Kinase 196 (30-223) U/L Liver Function 09/03/21 Range/Units 16:00 Total Bilirubin 0.9 (0.2-1.0) mg/dl AST 21 (13-39) U/L ALT 15 (7-52) U/L Alkaline Phosphatase 92 (34-104) U/L Albumin 4.0 (3.4-5.0) gm/dl Urine 09/03/21 Range/Units 16:30 Urine Color Dark Yellow Urine Appearance Clear (Clear) Urine pH 5.0 (4.5-7.5) Ur Specific [place] 1.039 H (1.000-1.030) Urine Protein 1+ H (Negative) Urine Glucose (UA) 3+ H (Negative)
[2021-09-05] MEDS: hydrALAZINE HCL 20 MG/ML VIAL IV PRN (04:00)
[2021-09-05 07:45] LABS: Hematocrit (blood only) 44.2 % (42-52); Mean Corpuscular Hemoglobin 31.8 pg (25-34); Mean Corpuscular Hgb Conc 33.9 g/dL (32-36); Mean Corpuscular Volume 93.6 fL (80-100); Platelet Count 214 K/uL (130-400); RDW Standard Deviation 44.7 fL (36.4-46.3); Red Blood Count 4.72 M/uL (4.7-6.1); White Blood Count 13.14 K/uL (4.8-10.8)
[2021-09-05 08:01] LABS: Calcium 8.9 mg/dl (8.5-10.1); Creatinine Clr Calc Pharmacy 51.7 ml/min; Est GFR (Non-African American) 66.4 ml/min; Magnesium 1.8 mg/dl (1.7-2.4)
[2021-09-05] MEDS: ESCITALOPRAM OXALATE 10 MG TAB PO SCH (08:02)
[2021-09-05] MEDS: DONEPEZIL HCL 5 MG TAB PO SCH (08:02)
[2021-09-05] MEDS: ASPIRIN 81 MG ECTAB PO SCH (08:02)
[2021-09-05] MEDS: LOSARTAN POTASSIUM 25 MG TAB PO SCH (08:02)
[2021-09-05] MEDS: carvediloL 6.25 MG TAB PO SCH ×2 (08:03→20:18)
[2021-09-05] MEDS: AMOXICILLIN/CLAVULANATE 875 MG TAB PO SCH ×2 (08:03→20:18)
[2021-09-05] MEDS: INSULIN ASPART PER UNIT SC SCH ×4 (08:07→20:23)
[2021-09-05 08:30] LABS: ALC (manual) 1.02 K/uL (1.2-3.4); ANC (manual) 10.97 K/uL (1.4-6.5); Basophils # (manual) 0.12 K/uL (0-0.2); Basophils % (manual) 0.9 %; Eosinophils # (manual) 0.22 K/uL (0-0.5); Eosinophils % (manual) 1.7 %; Lymphocytes # (manual) 1.02 K/uL (1.2-3.4); Lymphocytes % (manual) 7.8 %; Metamyelocytes # (manual) 0.12 K/uL (0-0); Metamyelocytes % (manual) 0.9 %; Monocytes # (manual) 0.68 K/uL (0.11-0.59); Monocytes % (manual) 5.2 %; Neutrophils # (manual) 10.97 K/uL (1.4-6.5); Neutrophils % (manual) 83.5 %
--- NOTE | 2021-09-05 10:14 | Electrocardiogram Report ---
Test Reason : Blood Pressure : / mmHG Vent. Rate : 071 BPM Atrial Rate : 071 BPM P-R Int : 160 ms QRS Dur : 080 ms QT Int : 386 ms P-R-T Axes : 035 004 091 degrees QTc Int : 419 ms Normal sinus rhythm Nonspecific T wave abnormality Abnormal ECG When compared with ECG of 16-JUN-2020 17:51, Nonspecific T wave abnormality now evident in Anterior leads Confirmed by Blair Weiss ([id number]) on 09/05/2021 10:14:13 AM Referred By: REFERRED SELF Confirmed By:Blair Weiss
[2021-09-05] MEDS ORDERED: LOSARTAN POTASSIUM 25 MG TAB PO STA (11:39)
--- NOTE | 2021-09-05 11:52 | Hospitalist Progress Note ---
Date of Service September 05, 2021 Assessment & Plan (1) Altered mental status: Plan: H/O Dementia Likely acute metabolic encephalopathy in setting of infection --MRI Brain:No acute intracranial abnormality. 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 Reorient as needed Currently back to baseline (2) Fall: Plan: Likely due to generalized weakness due to comorbidities PT/OT recommends SNF. CM working on this Fall precautions (3) Acute hyperglycemia: Plan: H/O DM type II: Not on meds Hgb A1c 7.4 NovoLog per protocol while hospitalized Carb controlled diet Start metformin on discharge (4) Elevated troponin: Plan: Likely due to uncontrolled hypertension Troponin trended down Echo showed no wall motion abnormality Patient denies chest pain (5) URI (upper respiratory infection): Plan: Acute bronchitis CXR:There is a decreased inspiratory effort with otherwise no acute chest disease. Procalcitonin 0.19 Negative COVID Screen Continue Augmentin Saturating well on room air Guaifenesin prn (6) HTN (hypertension): Plan: Uncontrolled Hypertensive urgency Atenolol was discontinued and patient started on carvedilol and losartan Losartan increased to 50mg daily today Adjust medications as needed (7) Alzheimer's dementia: Plan: Continue donepezil Bladder Stone Chronic (8) DVT prophylaxis: Plan: SQ Lovenox Called Daughter Florence Ruiz [phone] and updated Admission and Anticipated Discharge Date Admission Date: September 03, 2021 Subjective Seen and examined. Reports feeling better. Still reports cough. Denies chest pain, shortness of breath Denies fevers, chills, nausea, vomiting, abdominal pain, diarrhea Denies dysuria, frequency, urgency Physical Exam Constitutional: + well hydrated; no acute distress Eyes: PERRL, conjunctivae normal, anicteric sclerae ENMT: external ear and nose normal, oropharynx normal Respiratory: normal respiratory effort, lungs clear to auscultation Cardiovascular: Rate/Rhythm: regular rate and regular rhythm S1-S2 Gastrointestinal (Abdomen): normal bowel sounds, soft, nontender, no hepatosplenomegaly Musculoskeletal: No pedal edema Neurologic: PERRL, EOMI, accommodation nl, no face palsy, no dysarthria Psychiatric: A+Ox3, euthymic affect Results & Data Results & Data ([facility]) Vital Signs (Past 12 Hours) Vital Signs Temp Pulse Resp BP BP Pulse Ox 09/05/21 11:12 36.8 C 68 17 163/77 H 95 09/05/21 07:46 36.7 C 82 17 181/75 H 94 09/05/21 05:00 66 18 144/76 H 09/05/21 04:07 36.5 C 18 93 09/05/21 03:57 73 183/86 H Laboratory Results Abnormal lab results 09/04/21 09/04/21 09/05/21 Range/Units 16:33 20:39 07:04 WBC 13.14 H (4.8-10.8) K/uL Neutrophils # (Manual) 10.97 H (1.4-6.5) K/uL Total Absolute Neuts 10.97 H (1.4-6.5) K/uL Lymphocytes # (Manual) 1.02 L (1.2-3.4) K/uL Total Abs Lymphocytes 1.02 L (1.2-3.4) K/uL Monocytes # (Manual) 0.68 H (0.11-0.59) K/uL Metamyelocytes # (Man) 0.12 H (0-0) K/uL BUN/Creatinine Ratio (10-20) Glucose (70-99(Fasting)) mg/dl POC Glucose 142 H 174 H (70-99) mg/dl 09/05/21 09/05/21 09/05/21 Range/Units 07:04 07:06 11:27 WBC (4.8-10.8) K/uL Neutrophils # (Manual) (1.4-6.5) K/uL Total Absolute Neuts (1.4-6.5) K/uL Lymphocytes # (Manual) (1.2-3.4) K/uL Total Abs Lymphocytes (1.2-3.4) K/uL Monocytes # (Manual) (0.11-0.59) K/uL Metamyelocytes # (Man) (0-0) K/uL BUN/Creatinine Ratio 21.0 H (10-20) Glucose 183 H (70-99(Fasting)) mg/dl POC Glucose 177 H 203 H (70-99) mg/dl
--- NOTE | 2021-09-05 13:40 | Electrocardiogram Report ---
Test Reason : Blood Pressure : / mmHG Vent. Rate : 075 BPM Atrial Rate : 075 BPM P-R Int : 168 ms QRS Dur : 076 ms QT Int : 368 ms P-R-T Axes : 022 -01 089 degrees QTc Int : 410 ms Sinus rhythm with Premature atrial complexes Left ventricular hypertrophy with repolarization abnormality Abnormal ECG When compared with ECG of 03-SEP-2021 15:58, Premature atrial complexes are now Present Confirmed by Blair Weiss ([id number]) on 09/05/2021 1:40:11 PM Referred By: REFERRED SELF Confirmed By:Blair Weiss
--- NOTE | 2021-09-05 14:01 | Electrocardiogram Report ---
Test Reason : Blood Pressure : / mmHG Vent. Rate : 077 BPM Atrial Rate : 077 BPM P-R Int : 172 ms QRS Dur : 078 ms QT Int : 346 ms P-R-T Axes : 164 187 096 degrees QTc Int : 391 ms Sinus rhythm Limb lead reversal Possible Inferior infarct , age undetermined Abnormal ECG When compared with ECG of 03-SEP-2021 18:08, Limb lead reversal now present Nonspecific T wave abnormality no longer evident in Anterior leads Confirmed by Blair Weiss ([id number]) on 09/05/2021 2:01:14 PM Referred By: REFERRED SELF Confirmed By:Blair Weiss
[2021-09-05] MEDS: guaiFENesin SUGAR FREE 100 MG/5 ML UDC PO PRN (19:17)
[2021-09-06] MEDS: hydrALAZINE HCL 20 MG/ML VIAL IV PRN (04:28)
--- NOTE | 2021-09-06 06:23 | Electrocardiogram Report ---
Test Reason : Blood Pressure : / mmHG Vent. Rate : 066 BPM Atrial Rate : 066 BPM P-R Int : 146 ms QRS Dur : 080 ms QT Int : 380 ms P-R-T Axes : 029 006 079 degrees QTc Int : 398 ms Normal sinus rhythm Nonspecific T wave abnormality Abnormal ECG When compared with ECG of 04-SEP-2021 06:40, Limb lead reversal is no longer present Nonspecific T wave abnormality now evident in Anterior leads Confirmed by Blair Weiss ([id number] on 09/06/2021 6:23:18 AM Referred By: REFERRED SELF Confirmed By:Blair Weiss
[2021-09-06 07:17] LABS: Hematocrit (blood only) 43.8 % (42-52); Hemoglobin 15.4 g/dL (14.0-18.0); Mean Corpuscular Hemoglobin 32.4 pg (25-34); Mean Corpuscular Hgb Conc 35.2 g/dL (32-36); Mean Platelet Volume 9.7 fL (7.4-10.4); Platelet Count 267 K/uL (130-400); RDW Coefficient of Variation 12.6 % (11.5-14.5); RDW Standard Deviation 42.4 fL (36.4-46.3); Red Blood Count 4.76 M/uL (4.7-6.1); White Blood Count 12.94 K/uL (4.8-10.8)
[2021-09-06 07:26] LABS: Creatinine Clr Calc Pharmacy 51.3 ml/min; Est GFR (Non-African American) 66.4 ml/min
[2021-09-06] MEDS: AMOXICILLIN/CLAVULANATE 875 MG TAB PO SCH ×2 (07:41→20:47)
[2021-09-06] MEDS: ASPIRIN 81 MG ECTAB PO SCH (07:41)
[2021-09-06] MEDS: carvediloL 6.25 MG TAB PO SCH ×2 (07:42→20:46)
[2021-09-06] MEDS: ESCITALOPRAM OXALATE 10 MG TAB PO SCH (07:42)
[2021-09-06] MEDS: DONEPEZIL HCL 5 MG TAB PO SCH (07:42)
[2021-09-06] MEDS: INSULIN ASPART PER UNIT SC SCH ×4 (07:44→20:48)
[2021-09-06] MEDS: LOSARTAN POTASSIUM 50 MG TAB PO SCH (09:13)
[2021-09-06] MEDS: guaiFENesin SUGAR FREE 100 MG/5 ML UDC PO PRN ×2 (12:29→20:44)
--- NOTE | 2021-09-06 14:19 | Hospitalist Progress Note ---
Date of Service September 06, 2021 Assessment & Plan (1) Altered mental status: Plan: H/O Dementia Likely acute metabolic encephalopathy in setting of infection --MRI Brain:No acute intracranial abnormality. 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 Reorient as needed Currently back to baseline (2) Fall: Plan: Likely due to generalized weakness due to comorbidities PT/OT recommends SNF. CM working on this Fall precautions (3) Acute hyperglycemia: Plan: H/O DM type II: Not on meds Hgb A1c 7.4 NovoLog per protocol while hospitalized Carb controlled diet Start metformin on discharge (4) Elevated troponin: Plan: Likely due to uncontrolled hypertension Troponin trended down Echo showed no wall motion abnormality Patient denies chest pain (5) URI (upper respiratory infection): Plan: Acute bronchitis CXR:There is a decreased inspiratory effort with otherwise no acute chest disease. Procalcitonin 0.19 Negative COVID Screen Continue Augmentin Saturating well on room air Guaifenesin prn (6) HTN (hypertension): Plan: Hypertensive urgency Atenolol was discontinued and patient started on carvedilol and losartan BP better controlled Adjust medications as needed (7) Alzheimer's dementia: Plan: Continue donepezil Bladder Stone Chronic (8) DVT prophylaxis: Plan: SQ Lovenox Daughter Florence Ruiz [phone] Admission and Anticipated Discharge Date Admission Date: September 03, 2021 Subjective Seen and examined. Reports feeling better. Reports cough is improving Denies chest pain, shortness of breath Denies fevers, chills, nausea, vomiting, abdominal pain, diarrhea Denies dysuria, frequency, urgency Physical Exam Constitutional: + well hydrated; no acute distress Eyes: PERRL, conjunctivae normal, anicteric sclerae ENMT: external ear and nose normal, oropharynx normal Respiratory: normal respiratory effort, lungs clear to auscultation Cardiovascular: Rate/Rhythm: regular rate and regular rhythm S1 S2 Gastrointestinal (Abdomen): normal bowel sounds, soft, nontender, no hepatosplenomegaly Musculoskeletal: No pedal edema Neurologic: PERRL, EOMI, accommodation nl, no face palsy, no dysarthria Psychiatric: Alert and oriented to person and place. Occasional word finding difficulty which is chronic per daughter Results & Data Results & Data ([facility]) Vital Signs (Past 12 Hours) Vital Signs Temp Pulse Resp BP BP Pulse Ox 09/06/21 12:23 36.6 C 80 20 152/81 H 95 09/06/21 08:15 37.3 C 85 19 154/81 H 92 09/06/21 05:28 80 159/77 H 09/06/21 03:59 36.7 C 78 20 185/92 H 96 Laboratory Results Abnormal lab results 09/05/21 09/05/21 09/06/21 Range/Units 15:59 20:21 06:38 WBC 12.94 H (4.8-10.8) K/uL Sodium (136-145) mmol/L Glucose (70-99(Fasting)) mg/dl POC Glucose 185 H 189 H (70-99) mg/dl 09/06/21 09/06/21 09/06/21 Range/Units 06:38 07:23 11:16 WBC (4.8-10.8) K/uL Sodium 133 L (136-145) mmol/L Glucose 205 H (70-99(Fasting)) mg/dl POC Glucose 218 H 211 H (70-99) mg/dl
[2021-09-07] MEDS: INSULIN ASPART PER UNIT SC SCH ×4 (09:01→20:32)
[2021-09-07] MEDS: AMOXICILLIN/CLAVULANATE 875 MG TAB PO SCH ×2 (09:01→20:03)
[2021-09-07] MEDS: ASPIRIN 81 MG ECTAB PO SCH (09:02)
[2021-09-07] MEDS: LOSARTAN POTASSIUM 50 MG TAB PO SCH (09:02)
[2021-09-07] MEDS: ESCITALOPRAM OXALATE 10 MG TAB PO SCH (09:02)
[2021-09-07] MEDS: DONEPEZIL HCL 5 MG TAB PO SCH (09:02)
[2021-09-07] MEDS: carvediloL 12.5 MG TAB PO SCH ×2 (10:29→20:03)
--- NOTE | 2021-09-07 11:44 | Hospitalist Progress Note ---
Date of Service September 07, 2021 Assessment & Plan (1) Altered mental status: Plan: H/O Dementia Likely acute metabolic encephalopathy in setting of infection --MRI Brain:No acute intracranial abnormality. 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 Reorient as needed Currently back to baseline (2) Fall: Plan: Likely due to generalized weakness due to comorbidities PT/OT recommends SNF. Per CM, [facility] has staffing issues and will not be able to take patient till Friday Fall precautions (3) Acute hyperglycemia: Plan: H/O DM type II: Not on meds Hgb A1c 7.4 NovoLog per protocol while hospitalized Carb controlled diet Start metformin on discharge (4) Elevated troponin: Plan: Likely due to uncontrolled hypertension Troponin trended down Echo showed no wall motion abnormality Patient denies chest pain (5) URI (upper respiratory infection): Plan: Acute bronchitis CXR:There is a decreased inspiratory effort with otherwise no acute chest disease. Procalcitonin 0.19 Negative COVID Screen Continue Augmentin Saturating well on room air Guaifenesin prn (6) HTN (hypertension): Plan: Hypertensive urgency Atenolol was discontinued and patient started on carvedilol and losartan Carvedilol increased to 12.5mg bid Monitor (7) Alzheimer's dementia: Plan: Continue donepezil Bladder Stone Chronic (8) DVT prophylaxis: Plan: SQ Lovenox Daughter Florence Ruiz [phone] Downgrade to Med/Surg Admission and Anticipated Discharge Date Admission Date: September 03, 2021 Subjective Seen and examined. Denied any new complaints Reports cough Denies chest pain, shortness of breath Denies fevers, chills, nausea, vomiting, abdominal pain, diarrhea Denies dysuria, frequency, urgency Physical Exam Constitutional: + well hydrated; no acute distress Eyes: PERRL, conjunctivae normal, anicteric sclerae ENMT: external ear and nose normal, oropharynx normal Respiratory: normal respiratory effort, lungs clear to auscultation Cardiovascular: Rate/Rhythm: regular rate and regular rhythm S1 S2 Gastrointestinal (Abdomen): normal bowel sounds, soft, nontender, no hepatosplenomegaly Musculoskeletal: No pedal edema Neurologic: PERRL, EOMI, accommodation nl, no face palsy, no dysarthria Results & Data Results & Data ([facility]) Vital Signs (Past 12 Hours) Vital Signs Temp Pulse Pulse Resp BP Pulse Ox 09/07/21 07:38 36.8 C 82 20 168/84 H 94 09/07/21 07:00 69 09/07/21 04:14 178/82 H 09/07/21 03:10 36.7 C 74 16 177/79 H 93 Laboratory Results Abnormal lab results 09/06/21 09/06/21 09/07/21 Range/Units 16:07 20:07 07:05 POC Glucose 124 H 190 H 205 H (70-99) mg/dl 09/07/21 Range/Units 11:28 POC Glucose 202 H (70-99) mg/dl
[2021-09-08 08:44] LABS: Calcium 9.2 mg/dl (8.5-10.1); Creatinine Clr Calc Pharmacy 44.6 ml/min; Est GFR (African American) 72.6 ml/min; Est GFR (Non-African American) 62.6 ml/min; Potassium 4.5 mmol/L (3.5-5.1)
[2021-09-08] MEDS: LOSARTAN POTASSIUM 50 MG TAB PO SCH (08:51)
[2021-09-08] MEDS: ASPIRIN 81 MG ECTAB PO SCH (08:51)
[2021-09-08] MEDS: carvediloL 12.5 MG TAB PO SCH ×2 (08:52→20:23)
[2021-09-08] MEDS: DONEPEZIL HCL 5 MG TAB PO SCH (08:52)
[2021-09-08] MEDS: AMOXICILLIN/CLAVULANATE 875 MG TAB PO SCH ×2 (08:52→20:22)
[2021-09-08] MEDS: ESCITALOPRAM OXALATE 10 MG TAB PO SCH (08:53)
[2021-09-08] MEDS: INSULIN ASPART PER UNIT SC SCH ×4 (08:58→21:34)
--- NOTE | 2021-09-08 10:34 | Hospitalist Progress Note ---
Date of Service September 08, 2021 Assessment & Plan (1) Altered mental status: Plan: H/O Dementia Likely acute metabolic encephalopathy in setting of infection --MRI Brain:No acute intracranial abnormality. 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 Reorient as needed Currently back to baseline (2) Fall: Plan: Likely due to generalized weakness due to comorbidities PT/OT recommends SNF. Per CM, [facility] has staffing issues and will not be able to take patient till Friday Fall precautions (3) Acute hyperglycemia: Plan: H/O DM type II: Not on meds Hgb A1c 7.4 NovoLog per protocol while hospitalized Carb controlled diet Start metformin on discharge (4) Elevated troponin: Plan: Likely due to uncontrolled hypertension Troponin trended down Echo showed no wall motion abnormality Patient denies chest pain (5) URI (upper respiratory infection): Plan: Acute bronchitis CXR:There is a decreased inspiratory effort with otherwise no acute chest disease. Procalcitonin 0.19 Negative COVID Screen On augmentin Saturating well on room air Will do schedule guaifenesin and prn tessalon perrles (6) HTN (hypertension): Plan: Hypertensive urgency Atenolol was discontinued and patient started on carvedilol and losartan Continue carvedilol 12.5mg bid Monitor (7) Alzheimer's dementia: Plan: Continue donepezil Bladder Stone Chronic (8) DVT prophylaxis: Plan: SQ Lovenox Daughter Florence Ruiz [phone] Awaiting placement Admission and Anticipated Discharge Date Admission Date: September 03, 2021 Subjective Seen and examined. Denied any new complaints Reports only cough, persistent but not worsening Denies chest pain, shortness of breath Denies fevers, chills, nausea, vomiting, abdominal pain, diarrhea Denies dysuria, frequency, urgency Physical Exam Constitutional: + well hydrated; no acute distress Eyes: PERRL, conjunctivae normal, anicteric sclerae ENMT: external ear and nose normal, oropharynx normal Respiratory: normal respiratory effort, lungs clear to auscultation Cardiovascular: Rate/Rhythm: regular rate and regular rhythm S1 S2 Gastrointestinal (Abdomen): normal bowel sounds, soft, nontender, no hepatosplenomegaly Musculoskeletal: No pedal edema Neurologic: PERRL, EOMI, accommodation nl, no face palsy, no dysarthria Psychiatric: A+Ox3, euthymic affect Results & Data Results & Data ([facility]) Vital Signs (Past 12 Hours) Vital Signs Temp Pulse Resp BP Pulse Ox 09/08/21 07:53 36.8 C 78 18 189/76 H 96 09/07/21 23:53 36.7 C 75 18 149/81 H 94 09/07/21 22:43 37 C 70 18 109/68 94 Laboratory Results Abnormal lab results 09/07/21 09/07/21 09/08/21 Range/Units 16:16 20:12 07:38 Sodium (136-145) mmol/L Glucose (70-99(Fasting)) mg/dl POC Glucose 125 H 223 H 167 H (70-99) mg/dl 09/08/21 09/08/21 Range/Units 07:42 11:37 Sodium 134 L (136-145) mmol/L Glucose 191 H (70-99(Fasting)) mg/dl POC Glucose 219 H (70-99) mg/dl
[2021-09-08] MEDS ORDERED: BENZONATATE 100 MG CAPSULE PO PRN (13:24)
[2021-09-08] MEDS: ENOXAPARIN INJ 40 MG/0.4 ML SYR SQ SCH (13:30)
[2021-09-08] MEDS: guaiFENesin SUGAR FREE 100 MG/5 ML UDC PO SCH ×2 (16:17→20:22)
[2021-09-09] MEDS: guaiFENesin SUGAR FREE 100 MG/5 ML UDC PO SCH ×4 (00:46→20:08)
[2021-09-09] MEDS: LOSARTAN POTASSIUM 50 MG TAB PO SCH (09:38)
[2021-09-09] MEDS: carvediloL 12.5 MG TAB PO SCH ×2 (09:38→20:05)
[2021-09-09] MEDS: AMOXICILLIN/CLAVULANATE 875 MG TAB PO SCH (09:38)
[2021-09-09] MEDS: ENOXAPARIN INJ 40 MG/0.4 ML SYR SQ SCH (09:38)
[2021-09-09] MEDS: ASPIRIN 81 MG ECTAB PO SCH (09:38)
[2021-09-09] MEDS: ESCITALOPRAM OXALATE 10 MG TAB PO SCH (09:38)
[2021-09-09] MEDS: DONEPEZIL HCL 5 MG TAB PO SCH (09:38)
[2021-09-09] MEDS: INSULIN ASPART PER UNIT SC SCH ×4 (09:40→20:30)
--- NOTE | 2021-09-09 12:20 | Hospitalist Progress Note ---
Date of Service September 09, 2021 Assessment & Plan (1) Altered mental status: Plan: H/O Dementia Likely acute metabolic encephalopathy in setting of infection --MRI Brain:No acute intracranial abnormality. 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 Reorient as needed Currently back to baseline (2) Fall: Plan: Likely due to generalized weakness due to comorbidities PT/OT recommends SNF. Per CM, [facility] has staffing issues and will not be able to take patient till Friday Fall precautions (3) Acute hyperglycemia: Plan: H/O DM type II: Not on meds Hgb A1c 7.4 NovoLog per protocol while hospitalized Carb controlled diet Start metformin on discharge (4) Elevated troponin: Plan: Likely due to uncontrolled hypertension Troponin trended down Echo showed no wall motion abnormality Patient denies chest pain (5) URI (upper respiratory infection): Plan: Acute bronchitis CXR:There is a decreased inspiratory effort with otherwise no acute chest disease. Procalcitonin 0.19 Negative COVID Screen Treated with augmentin for 5 days Saturating well on room air Antitussives (6) HTN (hypertension): Plan: Hypertensive urgency Atenolol was discontinued and patient started on carvedilol and losartan Continue carvedilol 12.5mg bid Monitor (7) Alzheimer's dementia: Plan: Continue donepezil Bladder Stone Chronic (8) DVT prophylaxis: Plan: SQ Lovenox Daughter Florence Ruiz [phone] I called daughter and updated her. Due to patient's dementia, it may benefit patient to go to Assisted Living after rehab at SNF so that they can help him with managing his meds. Daughter agrees with this Admission and Anticipated Discharge Date Admission Date: September 03, 2021 Subjective Patient seen and examined. Denied any new complaints Reports cough is much improved Denies chest pain, shortness of breath Denies fevers, chills, nausea, vomiting, abdominal pain, diarrhea Denies dysuria, frequency, urgency Physical Exam Constitutional: + well hydrated; no acute distress Eyes: PERRL, conjunctivae normal, anicteric sclerae ENMT: external ear and nose normal, oropharynx normal Respiratory: normal respiratory effort, lungs clear to auscultation Cardiovascular: Rate/Rhythm: regular rate and regular rhythm S1 S2 Gastrointestinal (Abdomen): normal bowel sounds, soft, nontender, no hepatosplenomegaly Musculoskeletal: No pedal edema Neurologic: PERRL, EOMI, accommodation nl, no face palsy, no dysarthria Psychiatric: Alert and oriented to person and place only, euthymic Results & Data Results & Data ([facility]) Vital Signs (Past 12 Hours) Vital Signs Temp Pulse Resp BP Pulse Ox 09/09/21 07:44 36.7 C 76 20 167/82 H 96 Laboratory Results Abnormal lab results 09/08/21 09/08/21 09/09/21 Range/Units 16:32 20:46 07:32 POC Glucose 135 H 167 H 192 H (70-99) mg/dl 09/09/21 Range/Units 11:26 POC Glucose 182 H (70-99) mg/dl
[2021-09-10] MEDS: guaiFENesin SUGAR FREE 100 MG/5 ML UDC PO SCH ×2 (02:29→08:41)
[2021-09-10] MEDS: INSULIN ASPART PER UNIT SC SCH (08:38)
[2021-09-10] MEDS: carvediloL 12.5 MG TAB PO SCH (08:41)
[2021-09-10] MEDS: DONEPEZIL HCL 5 MG TAB PO SCH (08:41)
[2021-09-10] MEDS: ENOXAPARIN INJ 40 MG/0.4 ML SYR SQ SCH (08:42)
[2021-09-10] MEDS: ASPIRIN 81 MG ECTAB PO SCH (08:42)
[2021-09-10] MEDS: LOSARTAN POTASSIUM 50 MG TAB PO SCH (08:42)
[2021-09-10] MEDS: ESCITALOPRAM OXALATE 10 MG TAB PO SCH (08:42)
--- NOTE | 2021-09-10 10:45 | Discharge Summary ---
Date of Service September 10, 2021 Admission HPI Per Admitting Provider 89-year-old male with PMH CKD stage III, HTN, BPH, Alzheimer's dementia, and other problems listed below who presents the ED for evaluation of altered mental status and a fall. Patient's daughter is at the bedside who provides some history. Apparently yesterday morning, patient slid out of bed when trying to get up in the morning. He was disoriented and did not press his life alert button. Daughter states that he was disoriented for most of the day yesterday however improved by evening. This morning, patient was again disoriented. He was then brought to the ED for further evaluation. Over the past 1 week, patient has had sinus congestion, rhinorrhea, sore throat, cough. No fevers or chills reported. No other symptoms reported, history limited due to patient's memory issues. In the ED, labs show WBC 16 K, glucose 247, troponin 110. Head CT negative for acute findings, CXR negative for acute cardiopulmonary findings. Patient was given IVF. Admission Exam Per Admitting Provider General: Elderly man in no distress, coughing Eyes: PERRL, conjunctivae normal, not pale, anicteric sclerae, EOM intact bilaterally ENMT: External ear and nose normal, oropharynx normal Respiratory: Normal respiratory effort, +cough, no respiratory distress, lungs clear to auscultation, no crackles and no wheezes Cardiovascular:RRR S1 S2 Gastrointestinal (Abdomen): Abdomen is not distended, soft, non-tender to palpation, no guarding, no palpable hepatosplenomegaly, normal bowel sounds Musculoskeletal: No pedal edema Genitourinary: No CVA tenderness Neurologic: PERRL, EOMI, No focal weakness, sensation grossly intact Psychiatric: Alert and oriented to person, place (knows he is in a hospital but could not recall name) and month only, euthymic affect, no depressed affect Principal Diagnosis Fall Altered mental status Diabetes mellitus Hypertensive urgency Upper respiratory infection Discharge Exam Constitutional + well hydrated; no acute distress Eyes PERRL, conjunctivae normal, anicteric sclerae ENMT external ear and nose normal, oropharynx normal Respiratory normal respiratory effort, lungs clear to auscultation Cardiovascular Rate/Rhythm: regular rate and regular rhythm S1 S2 Gastrointestinal (Abdomen) normal bowel sounds, soft, nontender, no hepatosplenomegaly Musculoskeletal No pedal edema Neurologic PERRL, EOMI, accommodation nl, no face palsy, no dysarthria Psychiatric Alert and oriented to person and place only Discharge Data Allergies Allergy/AdvReac Type Severity Reaction Status Date / Time No Known Allergies Allergy Unverified 09/03/21 18:16 Consultations 09/03/21 17:34 ED Decision to Admit Stat Ordered Studies 09/03/21 16:05 CT head/brain wo con Stat Brain parenchyma: There is age-related involutional change noting mild to moderate subcortical and periventricular microangiopathic disease. There is no hemorrhage, mass effect, or evidence of acute territorial ischemia by CT criteria. 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 Trevizo-white matter differentiation is preserved. No extra-axial fluid collection is seen. 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 There may be a small associated cavernoma on image #22. Ventricles, sulci, cisterns: Prominent secondary to involutional change. Intracranial vasculature: There is atherosclerotic calcification of the cavernous carotid and vertebral arteries. Calvarium: The skeletal structures are osteopenic. No depressed calvarial fracture is identified. Sinuses and mastoids: There is mild mucosal thickening in the left maxillary antrum. The remaining visualized paranasal sinuses are clear. The mastoid air cells are well pneumatized. Cerumen is noted in the external auditory canals. Orbits: The bony orbits are grossly intact. There are bilateral ocular lens implants. IMPRESSION: 1. There is no hemorrhage, mass effect, or evidence of acute territorial ischemia by CT criteria. 2. 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 This is of doubtful acute significance. If clinically warranted this could be further evaluated by MRI. 09/04/21 09:36 MR brain wo/w con Routine Brain parenchyma: There is age-related involutional change noting moderate subcortical and periventricular microangiopathic disease. There is no hemorrhage or mass effect. There is no restricted diffusion to suggest acute ischemia. No enhancing mass lesion is identified on the postcontrast images. Chronic lacunar infarcts are noted in both cerebellar hemispheres. Trevizo-white matter differentiation is preserved. No extra-axial fluid collection is seen. The cerebellar tonsils are normal in configuration. 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 Ventricles, sulci, and cisterns: Prominent secondary to involutional change. Pituitary and sella: Unremarkable. Intracranial vasculature: Normal flow voids are maintained at the skull base. Orbits: The bony orbits are grossly intact. Orbital contents are normal in appearance noting bilateral ocular lens implants. Sinuses and mastoids: There is moderate mucosal thickening and an air-fluid level in the left maxillary antrum. The remaining paranasal sinuses and the mastoid air cells are clear. Calvarium: Unremarkable. Cervical cord: Partially visualized cervical spinal cord is normal in morphology and signal intensity. IMPRESSION: 1. No acute intracranial abnormality. 2. 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 Hospital Course (1) Altered mental status: H/O Dementia Likely acute metabolic encephalopathy in setting of infection --MRI Brain:No acute intracranial abnormality. 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 Reorient as needed Currently back to baseline (2) Fall: Likely due to generalized weakness due to comorbidities PT/OT recommends SNF. Fall precautions (3) Acute hyperglycemia: H/O DM type II: Not on meds Hgb A1c 7.4 Carb controlled diet Started on metformin on discharge (4) Elevated troponin: Likely due to uncontrolled hypertension Troponin trended down Echo showed no wall motion abnormality Patient denies chest pain (5) URI (upper respiratory infection): Acute bronchitis CXR:There is a decreased inspiratory effort with otherwise no acute chest disease. Procalcitonin 0.19 Negative COVID Screen Treated with augmentin for 5 days Saturating well on room air (6) HTN (hypertension): Hypertensive urgency Atenolol was discontinued and patient started on carvedilol and losartan Monitor and adjust meds as needed (7) Alzheimer's dementia: Continue donepezil Total Time Total Time Spent Total Time Spent (In Minutes): 35 Total Time Includes: Examination of the Patient, Discharge Planning and Medication Reconciliation Discharge Plan Discharge Items Patient Disposition: Transfer [facility] Reason For Visit: FALL, AMS Discharge Diagnosis: Fall Altered mental status Diabetes mellitus Hypertensive urgency Upper respiratory infection Activity: As commented below Activity Comment: Per Physical therapist recommendations Non-emergency contact: Primary Care Provider Call non-emergency contact if: you have any medication questions and your symptoms worsen Follow-up/Referrals: Ludin Zapata [facility] [Primary Care Provider] - Diet: Carb Consistent or DM2 and Heart Healthy Addtl Attending Provider Instructions: Mr Andersen You were brought to the hospital for altered mental status and fall. You were evaluated and found to have significantly elevated blood pressure and new diagnosis of diabetes. Your blood pressure medications were adjusted. Your atenolol was changed to carvedilol. You were also started on Losartan. You were started on metformin for diabetes. Your doctor will continue to monitor and adjust as needed. You are being discharged to [facility]. You will benefit from Assisted Living Facility after rehab due to need for help with your medications instead of going to Independent Living. It was a pleasure taking care of you. Pending Studies at Discharge: No Stand-Alone Forms: My [facility] Skilled Items Patient informed of condition?: Yes DNR: No Discharge Level of Care: Skilled Communicable Disease: No Discharge Prognosis: Stable Lines: None Urinary Catheter: No Medications and DC Order Prescriptions: New losartan 50 mg Tablet 50 mg PO QAM Qty: 30 RF: 0 carvedilol 12.5 mg Tablet 12.5 mg PO BID Qty: 60 RF: 0 metformin 500 mg tablet 500 mg PO DAILY Qty: 30 RF: 0 Continued donepezil 5 mg tablet 5 mg PO DAILY RF: 0 cyanocobalamin (vitamin B-12) 500 mcg Tablet 0 mcg PO DAILY RF: 0 cholecalciferol (vitamin D3) 25 mcg (1,000 unit) Capsule 0 mcg PO DAILY RF: 0 escitalopram oxalate 10 mg tablet 10 mg PO DAILY RF: 0 aspirin 81 mg Tablet 81 mg PO DAILY RF: 0 polyethylene glycol 3350 [Miralax] 17 gram/dose Powder 17 g PO DAILY PRN (Reason: Constipation) RF: 0 multivitamin Tablet 1 tab PO DAILY RF: 0 coenzyme Q10 [CoQ-10] 30 mg Capsule 0 mg PO DAILY RF: 0 Discontinued atenolol 25 mg tablet 25 mg PO DAILY RF: 0 Discharge Orders: Discharge Order (Routine); Ordered 09/10/21 Ordered By: Deja Beckham/Other Patient Handouts: Type 2 Diabetes Admission Data Admit Date/Time: 09/03/21 18:45 Attending Provider: Deja Jacobs I. Admit Provider: Deja Jacobs I. Primary Care Provider: Ludin Zapata [facility] Other Providers: Gustavo Abad ; Ludin Zapata at [facility] ; Deja Jacobs I. Other Interventions: Discharge Summary Assessment (RN) Last Done: 09/10/21 11:19
== END 2021-09-10 11:55 | DRG 202 ==
LOC: ED 15:30 → 2S 18:45 → SUATTDRO 18:45 → 2S 19:45 → 2W 09-07 23:45

== ENCOUNTER 2021-09-27 11:35 | Inpatient (IN) ==
--- NOTE | 2021-09-27 12:06 | Emergency Department Note ---
Impression & Plan RLL pneumonia, Hypomagnesemia, Hypoxia ED Provider Note Provider: Osmar Schilling MD DATE OF SERVICE: 09/27/2021 CHIEF COMPLAINT: Increased confusion and episode of vomiting HISTORY OF PRESENT ILLNESS: Patient is a 89-year-old gentleman history of CKD, hypertension, BPH, and dementia presenting here from [facility] today reportedly bit more confused than normal as well as having an episode of vomiting this morning. Patient himself is unsure if he vomited this morning but states he woke last night his blood sugar was off. Patient states he did not eat breakfast this morning because he was not hungry. Denies pain at this time. No falls reported. Denies shortness of breath. Daughter later arrives and states he is a bit disoriented at facility this morning and complained of having some chills overnight. REVIEW OF SYSTEMS: A total of 10 review of systems was obtained and negative except as stated above in the HPI. PAST MEDICAL HISTORY: As noted above MEDICATIONS: Reviewed home medication list SOCIAL HISTORY: Resides at [facility] assisted living PHYSICAL EXAM: GENERAL: alert and oriented to person and place in no acute distress on stretcher Head: normocephalic and atraumatic EYES: No injection, discharge or icterus. PERRL NECK: Trachea midline. Supple. ENT: Mucous membranes pink and moist. LUNGS: Airway patent. No retractions. Breath sounds clear HEART: Regular rate and rhythm. No chest wall tenderness ABDOMEN: Soft and non-tender, without guarding or rebound. SKIN: Acyanotic, warm, dry, without rashes EXTREMITIES: Without swelling, tenderness or deformity NEUROLOGICAL: No focal deficits. No aphasia. No facial droop or slurred speech. EK bpm normal sinus rhythm. No PVC or PAC. No acute ST segment elevation or depression with a QTC of 406. CONTINUOUS CARDIAC MONITORING: was ordered and showed a heart rate of 70s-80s bpm in normal sinus rhythm Patient's laboratory studies and imaging reviewed. Differential includes Infection, dehydration, metabolic abnormality, hypo/hyperglycemia, electrolyte disturbance, anemia, hypoxia, cardiac sources, intracerebral event, toxicologic, neurologic, as well as other pathologies. IMPRESSION/MEDICAL DECISION MAKING: Patient with underlying history of some dementia. No new trauma reported admitted here week or 2 ago after fall and treated for bronchitis. Pulse ox here dropped into the high 80s on room air. Chest x-ray completed. COVID test sent. EKG and troponin were completed without significant ischemic findings noted. Benign abdomen. Will complete a CT of the head. We will complete a CT of the chest to exclude occult pneumonia or PE. Does not appear fluid overloaded had recent echocardiogram. Blood work today with some mild hyperglycemia but also a significant le ukocytosis of almost 30. No anemia. Mild stable hyponatremia. Slightly worsened renal function given some IV fluid here as he does not appear fluid overloaded by any means. Hypomagnesemia noted and some IV supplementation ordered. No evidence of hepatitis or pancreatitis. Troponin is downtrending from previous level at last admission. Negative COVID. Given the hypoxia as well as reports of some vomiting with a leukocytosis a CT of the chest as well as the abdomen pelvis to be completed. CTA of the chest with evidence of a right lower lobe pneumonia. No acute findings per radiology in the CT of the brain. CT the abdomen pelvis questions enteritis. Did have an episode of vomiting by report of the facility earlier but benign abdomen here. Updated the patient and his daughter who is now at bedside. Given his recent hospitalization use of Augmentin covered initially with azithromycin and cefepime. Discussed with patient and family as well as the hospitalist for further care here. Daughter reports the patient is may be just a little off his normal baseline from a mentation standpoint but was more disoriented by the facility report earlier. DIAGNOSIS: Right lower lobe pneumonia, hypoxia, fatigue, hypomagnesemia DISPOSITION: Hospitalist will evaluate Patient was agreeable with this plan. Past Med/Surg History Medical History Alzheimer's dementia BPH (benign prostatic hyperplasia) CKD (chronic kidney disease), stage III DM type 2 (diabetes mellitus, type 2) HTN (hypertension) Surgical History No significant past surgical history Family History Brother Diabetes Social History Smoking Status: Current every day smoker Hx Alcohol Use: No Hx Substance Use: No Preferred Language: Maori Communication Ability: disoriente Educational Administration Teacher Required: No Beliefs That Will Affect Care: None Current Living Situation: Personal Care Facility Current Living Situation Comment: pt lives at [facility] Feels Safe at Home: Yes Assistive Devices: Cane and Walker Allergies Allergies Allergy/AdvReac Type Severity Reaction Status Date / Time No Known Allergies Allergy Unverified 09/27/21 14:00 Home Meds Home Medications Medication Instructions Recorded Confirmed multivitamin 1 tab PO DAILY 06/16/20 09/27/21 aspirin 81 mg tablet 81 mg PO DAILY 09/03/21 09/27/21 cholecalciferol (vitamin D3) 25 25 mcg PO DAILY 09/03/21 09/27/21 mcg (1,000 unit) capsule donepezil 5 mg tablet 5 mg PO DAILY 09/03/21 09/27/21 escitalopram oxalate 10 mg tablet 10 mg PO DAILY 09/03/21 09/27/21 polyethylene glycol 3350 17 17 g PO DAILY PRN 09/03/21 09/27/21 gram/dose oral powder (Miralax) acetaminophen 325 mg tablet 650 mg PO Q4 PRN 09/27/21 09/27/21 (Tylenol) coenzyme Q10 100 mg capsule 100 mg PO DAILY 09/27/21 09/27/21 (Q-Sorb Co Q-10) cyanocobalamin (vitamin B-12) 100 50 mcg PO DAILY 09/27/21 09/27/21 mcg tablet (Vitamin B-12) docusate sodium 100 mg tablet 100 mg PO DAILY PRN 09/27/21 09/27/21 metformin 500 mg tablet 500 mg PO QAM 09/27/21 09/27/21 Previous Rx's Medication Instructions Recorded carvedilol 12.5 mg tablet 12.5 mg PO BID #60 tab 09/07/21 losartan 50 mg tablet 50 mg PO QAM #30 tab 09/07/21 Results & Data (ED) Vital Signs Vital Signs - 24 hr 09/27/21 11:29 09/27/21 11:46 09/27/21 12:13 Temperature 37.0 C Temperature Source Oral Pulse Rate 82 82 Pulse Rate [Apical] Pulse Rhythm Regular Regular Pulse Rhythm [Apical] Pulse Strength Normal Pulse Strength [Apical] Respiratory Rate 18 18 Respiratory Effort / Characteristics Non-Labored Respiratory Depth Normal Respiratory Pattern Regular Blood Pressure 136/71 Blood Pressure [Left Arm] Blood Pressure Mean 92 Blood Pressure Mean [Left Arm] Blood Pressure Position Lying Blood Pressure Position [Left Arm] Pulse Oximetry 92 90 88 L Oxygen Delivery Method Room Air Room Air Room Air Oxygen Flow Rate 0 Sepsis Recent Fever Within 48 Hours No Sepsis New/Unexplained Change in Mental Status No Sepsis Action Taken by Nursing No Action Required Oxygen Flow Rate - Titration 2 Pulse Oximetry Post Tiitration 92 09/27/21 12:30 09/27/21 13:25 Temperature Temperature Source Pulse Rate Pulse Rate [Apical] 75 74 Pulse Rhythm Pulse Rhythm [Apical] Regular Pulse Strength Pulse Strength [Apical] Normal Respiratory Rate 16 20 Respiratory Effort / Characteristics Non-Labored Respiratory Depth Normal Respiratory Pattern Regular Blood Pressure Blood Pressure [Left Arm] 121/66 111/55 L Blood Pressure Mean Blood Pressure Mean [Left Arm] 84 73 Blood Pressure Position Blood Pressure Position [Left Arm] Lying Pulse Oximetry 93 95 Oxygen Delivery Method Room Air Nasal Cannula Oxygen Flow Rate 2 Sepsis Recent Fever Within 48 Hours Sepsis New/Unexplained Change in Mental Status Sepsis Action Taken by Nursing Oxygen Flow Rate - Titration Pulse Oximetry Post Tiitration Laboratory Data Result diagrams: 09/27/21 11:55 09/27/21 11:55 Lab Results 09/27/21 09/27/21 09/27/21 Range/Units 11:46 11:55 11:55 WBC 29.34 H (4.8-10.8) K/uL RBC 4.84 (4.7-6.1) M/uL Hgb 15.3 (14.0-18.0) g/dL Hct 44.0 (42-52) % MCV 90.9 (80-100) fL MCH 31.6 (25-34) pg MCHC 34.8 (32-36) g/dL RDW Std Deviation 41.9 (36.4-46.3) fL RDW Coeff of Betsy 12.5 (11.5-14.5) % Plt Count 298 (130-400) K/uL MPV 9.8 (7.4-10.4) fL Immature Gran % (Auto) 1.0 % Neut % (Auto) 88.1 % Lymph % (Auto) 2.6 % [place] % (Auto) 8.2 % Eos % (Auto) 0.0 % Baso % (Auto) 0.1 % Neut # (Auto) 25.84 H (1.4-6.5) K/uL Lymph # (Auto) 0.77 L (1.2-3.4) K/uL [place] # (Auto) 2.40 H (0.11-0.59) K/uL Eos # (Auto) 0.00 (0-0.5) K/uL Baso # (Auto) 0.03 (0-0.2) K/uL Immature Gran # (Auto) 0.30 H (0.00-0.02) K/uL PT 11.4 (9.0-12.0) Seconds INR 1.1 (0.9-1.1) Sodium (136-145) mmol/L Potassium (3.5-5.1) mmol/L Chloride (98-107) mmol/L Carbon Dioxide (21-32) mmol/L Anion Gap (3-11) BUN (6-23) mg/dl Creatinine (0.6-1.4) mg/dl Est Cr Clr Drug Dosing Est GFR ( Amer) ml/min Est GFR (Non-Af Amer) ml/min BUN/Creatinine Ratio (10-20) Glucose (70-99(Fasting)) mg/dl POC Glucose 325 H* (70-99) mg/dl Calcium (8.5-10.1) mg/dl Magnesium (1.7-2.4) mg/dl Total Bilirubin (0.2-1.0) mg/dl AST (13-39) U/L ALT (7-52) U/L Alkaline Phosphatase (34-104) U/L Troponin I High Sens (0-20) pg/ml Total Protein (6.0-8.3) gm/dl Albumin (3.4-5.0) gm/dl Globulin (2.5-4.0) gm/dl Albumin/Globulin Ratio (0.9-2) Lipase (11-82) U/L Procalcitonin (0-0.5) ng/ml TSH (0.300-4.500) uIu/ml SARS-CoV-2, RNA, NAAT (NEGATIVE) 09/27/21 09/27/21 09/27/21 Range/Units 11:55 11:55 11:55 WBC (4.8-10.8) K/uL RBC (4.7-6.1) M/uL Hgb (14.0-18.0) g/dL Hct (42-52) % MCV (80-100) fL MCH (25-34) pg MCHC (32-36) g/dL RDW Std Deviation (36.4-46.3) fL RDW Coeff of Betsy (11.5-14.5) % Plt Count (130-400) K/uL MPV (7.4-10.4) fL Immature Gran % (Auto) % Neut % (Auto) % Lymph % (Auto) % [place] % (Auto) % Eos % (Auto) % Baso % (Auto) % Neut # (Auto) (1.4-6.5) K/uL Lymph # (Auto) (1.2-3.4) K/uL [place] # (Auto) (0.11-0.59) K/uL Eos # (Auto) (0-0.5) K/uL Baso # (Auto) (0-0.2) K/uL Immature Gran # (Auto) (0.00-0.02) K/uL PT (9.0-12.0) Seconds INR (0.9-1.1) Sodium 133 L (136-145) mmol/L Potassium 4.2 (3.5-5.1) mmol/L Chloride 100 (98-107) mmol/L Carbon Dioxide 23 (21-32) mmol/L Anion Gap 10 (3-11) BUN 24 H (6-23) mg/dl Creatinine 1.46 H (0.6-1.4) mg/dl Est Cr Clr Drug Dosing Not Reportable Est GFR ( Amer) 48.7 ml/min Est GFR (Non-Af Amer) 42.0 ml/min BUN/Creatinine Ratio 16.4 (10-20) Glucose 320 H* (70-99(Fasting)) mg/dl POC Glucose (70-99) mg/dl Calcium 8.8 (8.5-10.1) mg/dl Magnesium 1.4 L (1.7-2.4) mg/dl Total Bilirubin 1.2 H (0.2-1.0) mg/dl AST 14 (13-39) U/L ALT 10 (7-52) U/L Alkaline Phosphatase 76 (34-104) U/L Troponin I High Sens 71.1 H* (0-20) pg/ml Total Protein 6.3 (6.0-8.3) gm/dl Albumin 3.3 L (3.4-5.0) gm/dl Globulin 3.0 (2.5-4.0) gm/dl Albumin/Globulin Ratio 1.1 (0.9-2) Lipase 7 L (11-82) U/L Procalcitonin (0-0.5) ng/ml TSH 1.804 (0.300-4.500) uIu/ml SARS-CoV-2, RNA, NAAT NEGATIVE (NEGATIVE) 09/27/21 Range/Units 11:55 WBC (4.8-10.8) K/uL RBC (4.7-6.1) M/uL Hgb (14.0-18.0) g/dL Hct (42-52) % MCV (80-100) fL MCH (25-34) pg MCHC (32-36) g/dL RDW Std Deviation (36.4-46.3) fL RDW Coeff of Betsy (11.5-14.5) % Plt Count (130-400) K/uL MPV (7.4-10.4) fL Immature Gran % (Auto) % Neut % (Auto) % Lymph % (Auto) % [place] % (Auto) % Eos % (Auto) % Baso % (Auto) % Neut # (Auto) (1.4-6.5) K/uL Lymph # (Auto) (1.2-3.4) K/uL [place] # (Auto) (0.11-0.59) K/uL Eos # (Auto) (0-0.5) K/uL Baso # (Auto) (0-0.2) K/uL Immature Gran # (Auto) (0.00-0.02) K/uL PT (9.0-12.0) Seconds INR (0.9-1.1) Sodium (136-145) mmol/L Potassium (3.5-5.1) mmol/L Chloride (98-107) mmol/L Carbon Dioxide (21-32) mmol/L Anion Gap (3-11) BUN (6-23) mg/dl Creatinine (0.6-1.4) mg/dl Est Cr Clr Drug Dosing Est GFR ( Amer) ml/min Est GFR (Non-Af Amer) ml/min BUN/Creatinine Ratio (10-20) Glucose (70-99(Fasting)) mg/dl POC Glucose (70-99) mg/dl Calcium (8.5-10.1) mg/dl Magnesium (1.7-2.4) mg/dl Total Bilirubin (0.2-1.0) mg/dl AST (13-39) U/L ALT (7-52) U/L Alkaline Phosphatase (34-104) U/L Troponin I High Sens (0-20) pg/ml Total Protein (6.0-8.3) gm/dl Albumin (3.4-5.0) gm/dl Globulin (2.5-4.0) gm/dl Albumin/Globulin Ratio (0.9-2) Lipase (11-82) U/L Procalcitonin 175.84 H (0-0.5) ng/ml TSH (0.300-4.500) uIu/ml SARS-CoV-2, RNA, NAAT (NEGATIVE) Administered Medications Insulin Aspart (Insulin Aspart Per Unit) 0 units SC ACHS JUNIOR Stop: 10/27/21 17:44 Last Admin: 09/27/21 18:07 Dose: 4 units Documented by: [id number] Cosigned by: [id number] Discontinued Medications Azithromycin (Azithromycin 250 Mg Tab) 500 mg PO NOW ONE Stop: 09/27/21 13:41 Last Admin: 09/27/21 14:20 Dose: 500 mg Documented by: [id number] Lactated Ringer's (Lr) 1,000 mls @ 999 mls/hr IV .Q1H1M ONE Stop: 09/27/21 13:33 Last Infusion: 09/27/21 14:33 Dose: 0 mls/hr Documented by: [id number] Admin: 09/27/21 12:40 Dose: 999 mls/hr Documented by: [id number] Magnesium Sulfate/Dextrose (Magnesium Sulfate / D5w) 1 gm in 100 mls @ 200 mls/hr IV Q30M JUNIOR Stop: 09/27/21 13:44 Last Infusion: 09/27/21 14:14 Dose: 0 mls/hr Documented by: [id number] Admin: 09/27/21 13:44 Dose: 200 mls/hr Documented by: [id number] Infusion: 09/27/21 13:10 Dose: 200 mls/hr Documented by: [id number] Admin: 09/27/21 12:40 Dose: 200 mls/hr Documented by: [id number] Cefepime HCl (Maxipime) 2,000 mg in 20 mls @ 5 mls/min IV NOW STA; Protocol Stop: 09/27/21 13:43 Last Admin: 09/27/21 14:20 Dose: 5 mls/min Documented by: [id number] Piperacillin Sod/Tazobactam Sod (Zosyn) 4.5 gm in 120 mls @ 240 mls/hr IV NOW STA; Protocol Stop: 09/27/21 16:20 Last Infusion: 09/27/21 17:44 Dose: 0 mls/hr Documented by: [id number] Admin: 09/27/21 16:09 Dose: 240 mls/hr Documented by: [id number] Ioversol (Optiray 320 125ml) 119 ml IV ONCE ONE Stop: 09/27/21 13:09 Last Admin: 09/27/21 13:15 Dose: 119 ml Documented by: [id number] Miscellaneous (Patient's Height &/Or Weight Needed) 1 ea N/A Q15M COUNT INCLUDES THE [facility] Stop: 10/27/21 16:59 Last Admin: 09/27/21 17:44 Dose: Not Given Documented by: [id number] Admin: 09/27/21 17:44 Dose: Not Given Documented by: [id number] Admin: 09/27/21 17:37 Dose: 1 ea Documented by: [id number] Imaging Data Radiologist's Impression: Chest X-Ray 09/27/21 11:46 SINGLE VIEW CHEST CLINICAL HISTORY: Change in mental status. FINDINGS: An AP, portable, upright chest radiograph is compared to study dated 09/03/2021. The heart is mildly enlarged noting atherosclerotic calcification of the thoracic aorta. The pulmonary vasculature is noncongested. Mild atelectasis is seen at the lung bases. The lungs and pleural spaces are otherwise clear. No pneumothorax is seen. The skeletal structures are osteopenic. The bony thorax is grossly intact. IMPRESSION: No active disease in the chest. ACT 112: Negative or not required by law. Electronically signed by: Gagandeep Villavicencio M.D. 09/27/2021 12:[address] 09/27/21 11:46 CT OF THE HEAD WITHOUT CONTRAST CLINICAL HISTORY: Confusion. COMPARISON STUDY: Head CT September 03, 2021. MRI of the brain September 04, 2021. TECHNIQUE: Helical axial images of the head were obtained without IV contrast. Automated exposure control was utilized for the study. A dose lowering te chnique was utilized adhering to the principles of ALARA. FINDINGS: No acute intracranial hemorrhage, midline shift or mass effect is present. 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 The ventricular system is unremarkable. The basal cisterns are patent. No extra-axial collections are present. There are no findings to suggest acute dural sinus thrombosis or acute territorial infarct. No significant calvarial abnormalities are present. Visualized portions of the sinuses and mastoid air cells are clear. IMPRESSION: No acute intracranial findings. No change in appearance of the brain. ACT 112: Negative or not required by law. Electronically signed by: Rocky Pinto M.D. 09/27/2021 1:26 PM Chest CTA 09/27/21 12:09 CT ANGIOGRAPHY OF THE CHEST, PULMONARY EMBOLUS PROTOCOL CLINICAL HISTORY: Hypoxia. Confusion. Evaluate for pulmonary embolus. COMPARISON STUDY: Chest radiograph September 27, 2021. TECHNIQUE: Following IV administration of 119 mL of Optiray, helical axial images of the chest were obtained utilizing the pulmonary embolus protocol. Maximal intensity projections and sagittal and coronal reformats were viewed on an independent 3D workstation. IV contrast was administered without complication. Automated exposure control was utilized for the study. A dose lowering technique was utilized adhering to the principles of ALARA. FINDINGS: No pulmonary emboli are identified. There is no thoracic aortic dissection. Mild cardiomegaly is noted. There is extensive coronary artery calcification. No enlarged axillary, mediastinal or hilar lymph nodes are present. A small hiatal hernia is noted. A few small thyroid nodules are incidentally noted. Note is made of multiple irregular nodular opacities within the posterior and medial basal segments of the right lower lobe. This suggests bronchopneumonia. Central airways are patent. There is no cavitation. Abdomen and pelvis CT will be reported separately. IMPRESSION: 1. No pulmonary emboli identified. 2. Multiple irregular nodular opacities within the posterior and medial basal segments of the right lower lobe suggestive of bronchopneumonia. 3. Cardiomegaly and coronary artery calcification, as above. ACT 112: Negative or not required by law. Electronically signed by: Rocky Pinto M.D. 09/27/2021 1:33 PM Abdomen/Pelvis CT 09/27/21 12:13 CT abd pelvis IV con only CLINICAL HISTORY: confusion, vomiting, elev wbc TECHNIQUE: Helical axial images of the abdomen and pelvis were obtained and displayed. Automated dose lowering techniques and/or adjustment according to patient size were utilized for this exam. This exam was performed with intravenous contrast. CT DOSE: 1904.87 mGy.cm COMPARISON: Comparison is made to CT abdomen pelvis 06/16/2020 FINDINGS: Lower chest: For findings above the diaphragm, please see CT chest performed same day. Liver: Unremarkable. No focal lesions are seen. Gallbladder and biliary tree: No calcified gallstones. Normal caliber wall. No intra- or extrahepatic biliary ductal dilation. Pancreas: Unremarkable, no focal lesions. Spleen: Splenule is incidentally noted. Adrenals: Unremarkable. Kidneys and ureters: Subcentimeter hypodensities are too small to characterize. Bladder: There is thickening of the bladder wall. Layering stones are noted within the bladder. No evidence of UVJ obstruction. Reproductive organs: Unremarkable. Bowel: Numerous thickened and enhancing loops of small bowel are seen in the left lower quadrant with associated vascular prominence. No evidence of obstruction is seen. A small hiatal hernia is seen. Lymph nodes Retroperitoneal: Unremarkable. Mesenteric: Subcentimeter lymph nodes are noted. These are most prominent in the left lower quadrant. Pelvic: Unremarkable. Peritoneum: A small amount of free fluid is seen. Vessels: Calcified and noncalcified aortic calcifications are seen. Abdominal wall: Unremarkable. Bones: Degenerative changes in the visualized spine. IMPRESSION: Numerous thickened loops of small bowel without evidence of obstruction, compatible with infectious/inflammatory enteritis. No evidence of appendicitis seen. ACT 112: Negative or not required by law. Electronically signed by: Eduardo Blanco M.D. 09/27/2021 1:42 PM Discharge Plan Visit Data Chief Complaint: Illness Stated Complaint: AMS ED Provider: Osmar Schilling Discharge Problem: RLL pneumonia, Hypomagnesemia, Hypoxia Patient Disposition: Being Evaluated by Hospitalist Discharge Instructions Interventions: ED Discharge Assessment Last Done: 09/27/21 16:30 Discharge Problem: RLL pneumonia Qualifiers: Pneumonia type: due to unspecified organism Qualified Code(s): J18.9 - Pneumonia, unspecified organism
[2021-09-27 12:11] LABS: Hemoglobin 15.3 g/dL (14.0-18.0); Mean Corpuscular Hemoglobin 31.6 pg (25-34); Mean Corpuscular Hgb Conc 34.8 g/dL (32-36); Mean Corpuscular Volume 90.9 fL (80-100); Mean Platelet Volume 9.8 fL (7.4-10.4); Platelet Count 298 K/uL (130-400); RDW Coefficient of Variation 12.5 % (11.5-14.5); RDW Standard Deviation 41.9 fL (36.4-46.3); Red Blood Count 4.84 M/uL (4.7-6.1); White Blood Count 29.34 K/uL (4.8-10.8)
--- NOTE | 2021-09-27 12:17 | XRay Report ---
SINGLE VIEW CHEST CLINICAL HISTORY: Change in mental status. FINDINGS: An AP, portable, upright chest radiograph is compared to study dated 09/03/2021. The heart is mildly enlarged noting atherosclerotic calcification of the thoracic aorta. The pulmonary vasculatur e is noncongested. Mild atelectasis is seen at the lung bases. The lungs and pleural spaces are other arguelles clear. No pneumothorax is seen. The skeletal structures are osteopenic. The bony thorax is gross ly intact. IMPRESSION: No active disease in the chest. ACT 112: Negative or not required by law. Electronically signed by: Gagandeep Villavicencio M.D. 09/27/2021 12:16 PM
[2021-09-27 12:25] LABS: INR 1.1 (0.9-1.1); Prothrombin Time 11.4 Seconds (9.0-12.0)
[2021-09-27 12:33] LABS: Alanine Aminotransferase 10 U/L (7-52); Albumin Globulin Ratio 1.1 (0.9-2); Albumin Level 3.3 gm/dl (3.4-5.0); Alkaline Phosphatase 76 U/L (34-104); Anion Gap 10 (3-11); Aspartate Aminotransferase 14 U/L (13-39); BUN Creatinine Ratio 16.4 (10-20); Bilirubin,Total 1.2 mg/dl (0.2-1.0); Blood Urea Nitrogen 24 mg/dl (6-23); Calcium 8.8 mg/dl (8.5-10.1); Carbon Dioxide 23 mmol/L (21-32); Chloride 100 mmol/L (98-107); Est GFR (African American) 48.7 ml/min; Glucose 320 mg/dl (70-99(Fasting)); Lipase 7 U/L (11-82); Magnesium 1.4 mg/dl (1.7-2.4); Potassium 4.2 mmol/L (3.5-5.1); Sodium 133 mmol/L (136-145); Total Protein 6.3 gm/dl (6.0-8.3)
[2021-09-27] MEDS ORDERED: LACTATED RINGER'S 1,000 ML IV ONE (12:33)
[2021-09-27] MEDS: MAGNESIUM SULFATE / D5W 1 GM/100 ML BAG IV SCH ×2 (12:40→13:44)
[2021-09-27 12:41] LABS: Basophils # (auto) 0.03 K/uL (0-0.2); Basophils % (auto) 0.1 %; Lymphocytes # (auto) 0.77 K/uL (1.2-3.4); Lymphocytes % (auto) 2.6 %; Monocytes % (auto) 8.2 %; Neutrophils # (auto) 25.84 K/uL (1.4-6.5); Neutrophils % (auto) 88.1 %
[2021-09-27 12:50] LABS: Troponin I High Sensitivity 71.1 pg/ml (0-20)
--- NOTE | 2021-09-27 13:01 | Electrocardiogram Report ---
Test Reason : Blood Pressure : / mmHG Vent. Rate : 082 BPM Atrial Rate : 082 BPM P-R Int : 170 ms QRS Dur : 076 ms QT Int : 348 ms P-R-T Axes : 033 011 085 degrees QTc Int : 406 ms Normal sinus rhythm Minor ST elevation in Inferior leads Abnormal ECG When compared with ECG of 05-SEP-2021 05:12, T-wave inversion in Anterolateral leads no longer present Otherwise no significant change Confirmed by Lincoln Anna ([id number]) on 09/27/2021 1:00:56 PM Referred By: Confirmed By:Lincoln Anna
[2021-09-27] MEDS ORDERED: OPTIRAY 320 125ml IV ONE (13:08)
--- NOTE | 2021-09-27 13:28 | CT Scan Report ---
CT OF THE HEAD WITHOUT CONTRAST CLINICAL HISTORY: Confusion. COMPARISON STUDY: Head CT September 03, 2021. MRI of the brain September 04, 2021. TECHNIQUE: Helical axial images of the head were obtained without IV contrast. Automated exposure con trol was utilized for the study. A dose lowering technique was utilized adhering to the principles o f ALARA. FINDINGS: No acute intracranial hemorrhage, midline shift or mass effect is present. White matter hyp odensities are unchanged and favor small vessel disease. An anomalous vessel with adjacent white joseph er hypodensity within the right frontal lobe extends to the frontal horn of the right lateral ventric le. 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 Old lacunar infar cts within the cerebellum are again noted. The ventricular system is unremarkable. The basal cisterns are patent. No extra-axial collections are present. There are no findings to suggest acute dural sin us thrombosis or acute territorial infarct. No significant calvarial abnormalities are present. Visua lized portions of the sinuses and mastoid air cells are clear. IMPRESSION: No acute intracranial findings. No change in appearance of the brain. ACT 112: Negative or not required by law. Electronically signed by: Rocky Pinto M.D. 09/27/2021 1:26 PM
--- NOTE | 2021-09-27 13:35 | CT Scan Report ---
CT ANGIOGRAPHY OF THE CHEST, PULMONARY EMBOLUS PROTOCOL CLINICAL HISTORY: Hypoxia. Confusion. Evaluate for pulmonary embolus. COMPARISON STUDY: Chest radiograph September 27, 2021. TECHNIQUE: Following IV administration of 119 mL of Optiray, helical axial images of the chest were o btained utilizing the pulmonary embolus protocol. Maximal intensity projections and sagittal and cor onal reformats were viewed on an independent 3D workstation. IV contrast was administered without co mplication. Automated exposure control was utilized for the study. A dose lowering technique was ut ilized adhering to the principles of ALARA. FINDINGS: No pulmonary emboli are identified. There is no thoracic aortic dissection. Mild cardiomeg mckenzie is noted. There is extensive coronary artery calcification. No enlarged axillary, mediastinal or hilar lymph nodes are present. A small hiatal hernia is noted. A few small thyroid nodules are incide ntally noted. Note is made of multiple irregular nodular opacities within the posterior and medial ba evette segments of the right lower lobe. This suggests bronchopneumonia. Central airways are patent. The re is no cavitation. Abdomen and pelvis CT will be reported separately. IMPRESSION: 1. No pulmonary emboli identified. 2. Multiple irregular nodular opacities within the posterior and medial basal segments of the right l ower lobe suggestive of bronchopneumonia. 3. Cardiomegaly and coronary artery calcification, as above. ACT 112: Negative or not required by law. Electronically signed by: Rocky Pinto M.D. 09/27/2021 1:33 PM
[2021-09-27] MEDS ORDERED: AZITHROMYCIN 250 MG TAB PO ONE (13:40)
[2021-09-27] MEDS ORDERED: CEFEPIME 2,000 MG/20 ML VIAL IV STA (13:40)
--- NOTE | 2021-09-27 13:43 | CT Scan Report ---
CT abd pelvis IV con only CLINICAL HISTORY: confusion, vomiting, elev wbc TECHNIQUE: Helical axial images of the abdomen and pelvis were obtained and displayed. Automated dose lowering techniques and/or adjustment according to patient size were utilized for this exam. This e xam was performed with intravenous contrast. CT DOSE: 1904.87 mGy.cm COMPARISON: Comparison is made to CT abdomen pelvis 06/16/2020 FINDINGS: Lower chest: For findings above the diaphragm, please see CT chest performed same day. Liver: Unremarkable. No focal lesions are seen. Gallbladder and biliary tree: No calcified gallstones. Normal caliber wall. No intra- or extrahepatic biliary ductal dilation. Pancreas: Unremarkable, no focal lesions. Spleen: Splenule is incidentally noted. Adrenals: Unremarkable. Kidneys and ureters: Subcentimeter hypodensities are too small to characterize. Bladder: There is thickening of the bladder wall. Layering stones are noted within the bladder. No ev idence of UVJ obstruction. Reproductive organs: Unremarkable. Bowel: Numerous thickened and enhancing loops of small bowel are seen in the left lower quadrant with associated vascular prominence. No evidence of obstruction is seen. A small hiatal hernia is seen. Lymph nodes Retroperitoneal: Unremarkable. Mesenteric: Subcentimeter lymph nodes are noted. These are most prominent in the left lower quadrant. Pelvic: Unremarkable. Peritoneum: A small amount of free fluid is seen. Vessels: Calcified and noncalcified aortic calcifications are seen. Abdominal wall: Unremarkable. Bones: Degenerative changes in the visualized spine. IMPRESSION: Numerous thickened loops of small bowel without evidence of obstruction, compatible with infectious/i nflammatory enteritis. No evidence of appendicitis seen. ACT 112: Negative or not required by law. Electronically signed by: Eduardo Blanco M.D. 09/27/2021 1:42 PM
--- NOTE | 2021-09-27 14:02 | History & Physical Report ---
Date of Service September 27, 2021 Assessment & Plan (1) RLL pneumonia: (2) Hypoxia: (3) Generalized weakness: Plan: - Admit to med surg with tele - Sputum culture, mucinex, duonebs QID and Q2H prn, tessalon pearls - Wean O2 prn - does not wear at baseline - Influenza swab neg, MRSA swab neg - WBC at time of admission = 29.34 - BCx x 2, follow - Tmax = 37.0 - Lactic acid and Procalcitonin ordered - CXR reviewed - concern for RLL pna - Continue antibiotic therapy with zosyn IV and azithromycin PO (4) Hypomagnesemia: Plan: - 1.4 on admission, replaced IV in the ER - Check with am labs (5) Elevated troponin: Plan: - 71 on admission, will trend another set q6h at 1800, noted that trop was elevated during his last admission at 110-->78 without cardiac complaints and was thought to be due to hypertension (6) Acute kidney injury superimposed on CKD: Plan: - CHAN with Cr of 1.46 today, baseline 1.0 - Renally reduce medications including antibiotics, will avoid nephrotoxins (7) DM type 2 (diabetes mellitus, type 2): Plan: - ISS with accuchecks achs - Last A1C was 7.4 on 09/04/21 - Novolog ordered, hold metformin (8) HTN (hypertension): Plan: - HOLD antihypertensives for now with borderline low BP and pna as above. Can resume per day team tomorrow if indicated for hypertension DVT prophylaxis: -- teds, heparin subcu CODE: Full code Dispo: From home, likely to remain in the hospital x 1-2 days History of Present Illness Primary Care Provider: J[facility] This is a 89 yo M from [facility] with PMHx of CKD stage III, HTN, BPH, Alzheimer's dementia, DM II who presents with illness. Pt is present with his daughter and son in law. He remembers getting cold overnight and shivering a lot, but denies fevers, chills or sweats. He notes waking up this morning and not feeling himself. Daughter notes that he was disoriented and at some times wasn't making sense this morning and so EMS was called. He normally gets up and is able to walk to breakfast and has mild to moderate Dementia. It takes him some time to recall his daughter, Florence, name while she is sitting at bedside. He knows he is in a hospital and the year, not able to name the date. Pt denies any chest complaints. He is coughing and bringing up small amounts of mucous but denies feeling short of breath. En route to the hospital there is report that the patient vomited. Pt cannot recall this but is also not a very good historian due to Alzheimer's. WBC is found to be 29.24, sodium is slightly low at 133, BUN 24 and creatinine 1.46 up from a baseline of 1.0. The patient is not drinking much water during the day per family at bedside. Troponin is elevated at 71 however this is lower compared to his previous admission where it was 110 and 78 on rechecks. Patient was started on cefepime IV and azithromycin 500 in the ER. We will switch to IV Zosyn for risk of aspiration pneumonia and because he received Augmentin during his last hospital stay which was 2.5 weeks ago. Allergies Allergy/AdvReac Type Severity Reaction Status Date / Time No Known Allergies Allergy Unverified 09/27/21 14:00 Home Medications Medication Instructions Recorded Confirmed Type multivitamin 1 tab PO DAILY 06/16/20 09/27/21 History aspirin 81 mg tablet 81 mg PO DAILY 09/03/21 09/27/21 History cholecalciferol (vitamin D3) 25 25 mcg PO DAILY 09/03/21 09/27/21 History mcg (1,000 unit) capsule donepezil 5 mg tablet 5 mg PO DAILY 09/03/21 09/27/21 History escitalopram oxalate 10 mg tablet 10 mg PO DAILY 09/03/21 09/27/21 History polyethylene glycol 3350 17 17 g PO DAILY PRN 09/03/21 09/27/21 History gram/dose oral powder (Miralax) carvedilol 12.5 mg tablet 12.5 mg PO BID #60 tab 09/07/21 09/27/21 Rx losartan 50 mg tablet 50 mg PO QAM #30 tab 09/07/21 09/27/21 Rx acetaminophen 325 mg tablet 650 mg PO Q4 PRN 09/27/21 09/27/21 History (Tylenol) coenzyme Q10 100 mg capsule 100 mg PO DAILY 06/30/22 06/30/22 History (Q-Sorb Co Q-10) cyanocobalamin (vitamin B-12) 100 50 mcg PO DAILY 09/27/21 09/27/21 History mcg tablet (Vitamin B-12) docusate sodium 100 mg tablet 100 mg PO DAILY PRN 09/27/21 09/27/21 History metformin 500 mg tablet 500 mg PO QAM 09/27/21 09/27/21 History Past Med/Surg History Medical History Alzheimer's dementia BPH (benign prostatic hyperplasia) CKD (chronic kidney disease), stage III DM type 2 (diabetes mellitus, type 2) HTN (hypertension) Surgical History No significant past surgical history Family History Brother Diabetes Social History Smoking Status: Current every day smoker Hx Alcohol Use: No Hx Substance Use: No Preferred Language: Ukrainian Communication Ability: disoriente Commercial Engineer Required: No Beliefs That Will Affect Care: None Current Living Situation: Personal Care Facility Current Living Situation Comment: pt lives at [facility] Feels Safe at Home: Yes Assistive Devices: Cane and Walker Review of Systems Review of Systems: Constitutional: No fever, sweats, + chills as per HPI Eyes: No diplopia, no worsening or blurred vision ENT: normal hearing, no trouble swallowing Respiratory: + Cough, + sputum, no dyspnea at rest or on exertion Cardiovascular: No chest pain, tightness or palpitations Abdomen: No pain, nausea, vomiting, diarrhea or constipation Musculoskeletal: No joint pain, calf pain, swelling Neurologic: No weakness, numbness/tingling, or balance problems Psychiatric: No anxiety or depression, as per HPI, increased confusion this morning Skin: No rash or itch Physical Exam Physical Exam: General: awake, alert, no apparent distress, + poor historian due to Alzheimer's dementia Head: Normocephalic, atraumatic ENT: PERRL, EOMI, no pharyngeal exudate, mucous membranes appear slightly dry Chest: On 2L via NC, was hypoxic in the 80s on room air, RR = 16-20 since being in the ER, nearly absent breath sounds in RLL, crackles in RML, crackles in LLL, no wheezing or rales Cardiac: Regular rate and rhythm, HR in the 90s at bedside, no murmur, no JVD, normal peripheral pulses, good capillary refill Abdominal: NABS x 4 quadrants, soft, nondistended, nontender to palpation, no rebound or guarding Extremities: Normal inspection, no peripheral edema or erythema, calfs nontender to palpation Psych: Normal mood and affect Neuro: AAO to self, knows he is in the hospital, struggles to name family member sitting at bedside, poor historian, strength intact bilaterally and rated 5/5, no motor deficits, speech is clear, no peripheral sensory deficits Results & Data Results & Data ([facility]) Vital Signs (Past 12 Hours) Vital Signs Temp Pulse Pulse Resp BP BP Pulse Ox 09/27/21 13:25 74 20 111/55 L 95 09/27/21 12:30 75 16 121/66 93 09/27/21 12:13 88 L 09/27/21 11:46 82 18 90 09/27/21 11:29 37.0 C 82 18 136/71 92 Laboratory Results Chest X-Ray 09/27/21 11:46 SINGLE VIEW CHEST CLINICAL HISTORY: Change in mental status. FINDINGS: An AP, portable, upright chest radiograph is compared to study dated 09/03/2021. The heart is mildly enlarged noting atherosclerotic calcification of the thoracic aorta. The pulmonary vasculature is noncongested. Mild atelectasis is seen at the lung bases. The lungs and pleural spaces are otherwise clear. No pneumothorax is seen. The skeletal structures are osteopenic. The bony thorax is grossly intact. IMPRESSION: No active disease in the chest. ACT 112: Negative or not required by law. Electronically signed by: Gagandeep Villavicencio M.D. 09/27/2021 12:[address] 09/27/21 11:46 CT OF THE HEAD WITHOUT CONTRAST CLINICAL HISTORY: Confusion. COMPARISON STUDY: Head CT September 03, 2021. MRI of the brain September 04, 2021. TECHNIQUE: Helical axial images of the head were obtained without IV contrast. Automated exposure control was utilized for the study. A dose lowering technique was utilized adhering to the principles of ALARA. FINDINGS: No acute intracranial hemorrhage, midline shift or mass effect is present. 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 The ventricular system is unremarkable. The basal cisterns are patent. No extra-axial collections are present. There are no findings to suggest acute dural sinus thrombosis or acute territorial infarct. No significant calvarial abnormalities are present. Visualized portions of the sinuses and mastoid air cells are clear. IMPRESSION: No acute intracranial findings. No change in appearance of the brain. ACT 112: Negative or not required by law. Electronically signed by: Rocky Pinto M.D. 09/27/2021 1:26 PM Chest CTA 09/27/21 12:09 CT ANGIOGRAPHY OF THE CHEST, PULMONARY EMBOLUS PROTOCOL CLINICAL HISTORY: Hypoxia. Confusion. Evaluate for pulmonary embolus. COMPARISON STUDY: Chest radiograph September 27, 2021. TECHNIQUE: Following IV administration of 119 mL of Optiray, helical axial images of the chest were obtained utilizing the pulmonary embolus protocol. Maximal intensity projections and sagittal and coronal reformats were viewed on an independent 3D workstation. IV contrast was administered without complication. Automated exposure control was utilized for the study. A dose lowering technique was utilized adhering to the principles of ALARA. FINDINGS: No pulmonary emboli are identified. There is no thoracic aortic dissection. Mild cardiomegaly is noted. There is extensive coronary artery calcification. No enlarged axillary, mediastinal or hilar lymph nodes are present. A small hiatal hernia is noted. A few small thyroid nodules are incidentally noted. Note is made of multiple irregular nodular opacities within the posterior and medial basal segments of the right lower lobe. This suggests bronchopneumonia. Central airways are patent. There is no cavitation. Abdomen and pelvis CT will be reported separately. IMPRESSION: 1. No pulmonary emboli identified. 2. Multiple irregular nodular opacities within the posterior and medial basal segments of the right lower lobe suggestive of bronchopneumonia. 3. Cardiomegaly and coronary artery calcification, as above. ACT 112: Negative or not required by law. Electronically signed by: Rocky Pinto M.D. 09/27/2021 1:33 PM Abdomen/Pelvis CT 09/27/21 12:13 CT abd pelvis IV con only CLINICAL HISTORY: confusion, vomiting, elev wbc TECHNIQUE: Helical axial images of the abdomen and pelvis were obtained and displayed. Automated dose lowering techniques and/or adjustment according to patient size were utilized for this exam. This exam was performed with intravenous contrast. CT DOSE: 1904.87 mGy.cm COMPARISON: Comparison is made to CT abdomen pelvis 06/16/2020 FINDINGS: Lower chest: For findings above the diaphragm, please see CT chest performed same day. Liver: Unremarkable. No focal lesions are seen. Gallbladder and biliary tree: No calcified gallstones. Normal caliber wall. No intra- or extrahepatic biliary ductal dilation. Pancreas: Unremarkable, no focal lesions. Spleen: Splenule is incidentally noted. Adrenals: Unremarkable. Kidneys and ureters: Subcentimeter hypodensities are too small to characterize. Bladder: There is thickening of the bladder wall. Layering stones are noted within the bladder. No evidence of UVJ obstruction. Reproductive organs: Unremarkable. Bowel: Numerous thickened and enhancing loops of small bowel are seen in the left lower quadrant with associated vascular prominence. No evidence of obstruction is seen. A small hiatal hernia is seen. Lymph nodes Retroperitoneal: Unremarkable. Mesenteric: Subcentimeter lymph nodes are noted. These are most prominent in the left lower quadrant. Pelvic: Unremarkable. Peritoneum: A small amount of free fluid is seen. Vessels: Calcified and noncalcified aortic calcifications are seen. Abdominal wall: Unremarkable. Bones: Degenerative changes in the visualized spine. IMPRESSION: Numerous thickened loops of small bowel without evidence of obstruction, compatible with infectious/inflammatory enteritis. No evidence of appendicitis seen. ACT 112: Negative or not required by law. Electronically signed by: Eduardo Blanco M.D. 09/27/2021 1:42 PM Diagnostic Findings 09/27/21 09/27/21 09/27/21 11:55 11:55 11:55 WBC RBC Hgb Hct MCV MCH MCHC RDW Std Deviation RDW Coeff of Betsy Plt Count MPV Immature Gran % (Auto) Neut % (Auto) Lymph % (Auto) Briscoe % (Auto) Eos % (Auto) Baso % (Auto) Neut # (Auto) Lymph # (Auto) [place]iscoe # (Auto) Eos # (Auto) Baso # (Auto) Immature Gran # (Auto) PT INR Sodium 133 L Potassium 4.2 Chloride 100 Carbon Dioxide 23 Anion Gap 10 BUN 24 H Creatinine 1.46 H Est Cr Clr Drug Dosing Not Reportable Est GFR ( Amer) 48.7 Est GFR (Non-Af Amer) 42.0 BUN/Creatinine Ratio 16.4 Glucose 320 H* POC Glucose Calcium 8.8 Magnesium 1.4 L Total Bilirubin 1.2 H AST 14 ALT 10 Alkaline Phosphatase 76 Troponin I High Sens 71.1 H* Total Protein 6.3 Albumin 3.3 L Globulin 3.0 Albumin/Globulin Ratio 1.1 Lipase 7 L TSH 1.804 SARS-CoV-2, RNA, NAAT NEGATIVE 09/27/21 09/27/21 09/27/21 11:55 11:55 11:46 WBC 29.34 H RBC 4.84 Hgb 15.3 Hct 44.0 MCV 90.9 MCH 31.6 MCHC 34.8 RDW Std Deviation 41.9 RDW Coeff of Betsy 12.5 Plt Count 298 MPV 9.8 Immature Gran % (Auto) 1.0 Neut % (Auto) 88.1 Lymph % (Auto) 2.6 Briscoe % (Auto) 8.2 Eos % (Auto) 0.0 Baso % (Auto) 0.1 Neut # (Auto) 25.84 H Lymph # (Auto) 0.77 L Briscoe # (Auto) 2.40 H Eos # (Auto) 0.00 Baso # (Auto) 0.03 Immature Gran # (Auto) 0.30 H PT 11.4 INR 1.1 Sodium Potassium Chloride Carbon Dioxide Anion Gap BUN Creatinine Est Cr Clr Drug Dosing Est GFR ( Amer) Est GFR (Non-Af Amer) BUN/Creatinine Ratio Glucose POC Glucose 325 H* Calcium Magnesium Total Bilirubin AST ALT Alkaline Phosphatase Troponin I High Sens Total Protein Albumin Globulin Albumin/Globulin Ratio Lipase TSH SARS-CoV-2, RNA, NAAT ECG Indication: altered mental status Additional Comments: Test Reason : Blood Pressure : / mmHG Vent. Rate : 082 BPM Atrial Rate : 082 BPM P-R Int : 170 ms QRS Dur : 076 ms QT Int : 348 ms P-R-T Axes : 033 011 085 degrees QTc Int : 406 ms Normal sinus rhythm Minor ST elevation in Inferior leads Abnormal ECG When compared with ECG of 05-SEP-2021 05:12, T-wave inversion in Anterolateral leads no longer present Otherwise no significant change Code Status & VTE Plan Code Status Full code - discussed with daughter, Florence at bedside Supervising Physician Co-Signing Physician Notes Date of Service: September 27, 2021 History and physical exam performed by me. History notable for 89-year-old man with CKD, hypertension, Alzheimer's dementia recently hospitalized just over 2 weeks ago for fall, altered mental status and bronchitis; who was brought into the hospital today from nursing facility for increased confusion and an episode of vomiting. Patient is a very poor historian. Review of systems notable for cough. Exam notable for elderly man in no obvious distress alert and oriented to person and place only, on nasal cannula, scattered crackles lung bases. Lab work notable for cytosis of 29,000, creatinine of 1.46, glucose of 320, magnesium of 1.4, total bilirubin of 1.2, troponin at bedtime of [address] did not show any acute abnormalities. Chest CTA did not show any PE but noted multiple irregular nodular opacities within the posterior and medial basal segment of the right lower lung suggestive of bronchopneumonia Abd/P CT noted numerous thickened small bowel loops without evidence of obstruction, ?infection/inflammatory enteritis Pneumonia Acute respiratory failure with hypoxia Acute kidney injury Elevated troponin Did not meet SIRS criteria on admission RN in ER noted patient dropped to 88% when taken off oxygen. Continue to supplement oxygen and wean as tolerated Considering recent hospitalization and patient had received Augmentin for upper respiratory infection at that time, as well as possible aspiration considering vomiting; will cover with Zosyn for now and de-escalate as needed. Patient has elevated troponin in the past. Monitor Continue IVF and monitor renal function Renally dose meds Hold anithypertensives for today in view of SBP running in 100s. Reassess later. Accucheck AC/HS. ISS Hypomagnesemia. Got IV mag in ER Agree with other plans as detailed by Nicole Maldonado PA-C (1) RLL pneumonia Pneumonia type: due to unspecified organism Qualified Code(s): J18.9 - Pneumonia, unspecified organism
--- NOTE | 2021-09-27 14:55 | Communication Note ---
Date of Service: September 27, 2021 History and physical exam performed by me. History notable for 89-year-old man with CKD, hypertension, Alzheimer's dementia recently hospitalized just over 2 weeks ago for fall, altered mental status and bronchitis; who was brought into the hospital today from nursing facility for increased confusion and an episode of vomiting. Patient is a very poor historian. Review of systems notable for cough. Exam notable for elderly man in no obvious distress alert and oriented to person and place only, on nasal cannula, scattered crackles lung bases. Lab work notable for cytosis of 29,000, creatinine of 1.46, glucose of 320, magnesium of 1.4, total bilirubin of 1.2, troponin at bedtime of [address] did not show any acute abnormalities. Chest CTA did not show any PE but noted multiple irregular nodular opacities within the posterior and medial basal segment of the right lower lung suggestive of bronchopneumonia Abd/P CT noted numerous thickened small bowel loops without evidence of obstruction, ?infection/inflammatory enteritis Pneumonia Acute respiratory failure with hypoxia Acute kidney injury Elevated troponin RN in ER noted patient dropped to 88% when taken off oxygen. Continue to supplement oxygen and wean as tolerated Considering recent hospitalization and patient had received Augmentin for upper respiratory infection at that time, as well as possible aspiration considering vomiting; will cover with Zosyn for now and de-escalate as needed. Patient has elevated troponin in the past. Monitor Continue IVF and monitor renal function Renally dose meds Hold anithypertensives for today in view of SBP running in 100s. Reassess later. Accucheck AC/HS. ISS Hypomagnesemia. Got IV mag in ER Agree with other plans as detailed by Nicole Maldonado PA-C
[2021-09-27 15:14] LABS: Appearance Urine Clear (Clear); Bilirubin Urine Negative (Negative); Blood Urine Negative (Negative); Color Urine Yellow; Glucose Urine UA 1+ (Negative); Ketones Urine Negative (Negative); Leukocyte Esterase Urine Negative (Negative); Nitrite Urine Negative (Negative); Protein Urine Negative (Negative); Specific Gravity Urine > 1.045 (1.000-1.030); Urobilinogen Urine Negative (Negative); pH Urine 6.5 (4.5-7.5)
[2021-09-27] MEDS ORDERED: PIPERACILLIN/TAZOBACTAM 4.5 GM/120 ML BAG IV STA (15:51)
[2021-09-27] MEDS ORDERED: POLYETHYLENE (MIRALAX) 17 GM PACK PO PRN (16:12)
[2021-09-27] MEDS ORDERED: DOCUSATE SODIUM 100 MG CAP PO PRN (16:32)
[2021-09-27] MEDS ORDERED: DEXTROSE 50% 50 ML SYRINGE IV PRN (17:15)
[2021-09-27] MEDS ORDERED: ACETAMINOPHEN 325 MG TAB PO PRN (17:15)
[2021-09-27] MEDS ORDERED: ONDANSETRON INJ 2 MG/ML 2 ML VIAL IV PRN (17:15)
[2021-09-27] MEDS ORDERED: GLUCOSE 40% GEL 15 GM TUBE PO PRN (17:15)
[2021-09-27] MEDS ORDERED: CARBOHYDRATES FOR HYPOGLYCEMIA PO PRN (17:15)
[2021-09-27] MEDS ORDERED: GLUCAGON FOR INJ 1 MG VIAL SQ PRN (17:15)
[2021-09-27] MEDS ORDERED: GLUCOSE 10 TABS/TUBE PO PRN (17:15)
[2021-09-27] MEDS: Patient's HEIGHT &/or WEIGHT Needed SCH ×2 (17:37→17:44)
[2021-09-27] MEDS: INSULIN ASPART PER UNIT SC SCH ×2 (18:07→20:10)
[2021-09-27] MEDS: SODIUM CHLORIDE 0.9% 1000ML 1,000 ML IV SCH (18:34)
[2021-09-27] MEDS: ALBUT/IPRATROP 3MG/0.5MG NEB 3 ML VIAL NEB SCH ×3 (19:22→23:02)
[2021-09-27] MEDS: guaiFENesin 600 MG TABCR PO SCH (20:09)
[2021-09-27] MEDS: BENZONATATE 100 MG CAPSULE PO SCH (20:09)
[2021-09-27] MEDS: HEPARIN SOD 5,000 UNIT/0.5 ML VIAL SQ SCH (20:09)
[2021-09-27] MEDS: PIPERACILLIN/TAZOBACTAM 4.5 GM in DEXTROSE 5% 100 ML IV SCH (21:06)
[2021-09-28] MEDS: SODIUM CHLORIDE 0.9% 1000ML 1,000 ML IV SCH (01:59)
[2021-09-28] MEDS: ALBUT/IPRATROP 3MG/0.5MG NEB 3 ML VIAL NEB SCH ×2 (02:11→07:04)
[2021-09-28] MEDS: PIPERACILLIN/TAZOBACTAM 4.5 GM in DEXTROSE 5% 100 ML IV SCH ×3 (05:58→21:36)
[2021-09-28 06:09] LABS: Hematocrit (blood only) 36.9 % (42-52); Hemoglobin 12.5 g/dL (14.0-18.0); Mean Corpuscular Hemoglobin 30.9 pg (25-34); Mean Corpuscular Hgb Conc 33.9 g/dL (32-36); Mean Corpuscular Volume 91.1 fL (80-100); Mean Platelet Volume 9.8 fL (7.4-10.4); Platelet Count 257 K/uL (130-400); Red Blood Count 4.05 M/uL (4.7-6.1); White Blood Count 19.58 K/uL (4.8-10.8)
[2021-09-28 06:30] LABS: Albumin Globulin Ratio 1.1 (0.9-2); Albumin Level 2.8 gm/dl (3.4-5.0); BUN Creatinine Ratio 19.3 (10-20); Bilirubin,Total 1.3 mg/dl (0.2-1.0); Calcium 8.2 mg/dl (8.5-10.1); Creatinine Clr Calc Pharmacy 35.9 ml/min; Est GFR (African American) 53.6 ml/min; Est GFR (Non-African American) 46.2 ml/min; Globulin 2.6 gm/dl (2.5-4.0); Magnesium 1.9 mg/dl (1.7-2.4); Potassium 3.6 mmol/L (3.5-5.1); Total Protein 5.4 gm/dl (6.0-8.3)
[2021-09-28] MEDS: CHOLECALCIFEROL 1,000 UNITS 25 MCG TAB PO SCH (08:31)
[2021-09-28] MEDS: DONEPEZIL HCL 5 MG TAB PO SCH (08:31)
[2021-09-28] MEDS: CYANOCOBALAMIN (B-12) 100 MCG TABLET PO SCH (08:31)
[2021-09-28] MEDS: BENZONATATE 100 MG CAPSULE PO SCH ×3 (08:31→21:28)
[2021-09-28] MEDS: ASPIRIN 81 MG ECTAB PO SCH (08:31)
[2021-09-28] MEDS: MULTIVITAMIN TAB PO SCH (08:31)
[2021-09-28] MEDS: guaiFENesin 600 MG TABCR PO SCH ×2 (08:32→21:27)
[2021-09-28] MEDS: HEPARIN SOD 5,000 UNIT/0.5 ML VIAL SQ SCH ×2 (08:32→21:29)
[2021-09-28] MEDS: AZITHROMYCIN 250 MG TAB PO SCH (08:32)
[2021-09-28] MEDS: INSULIN ASPART PER UNIT SC SCH ×4 (08:38→21:18)
[2021-09-28] MEDS ORDERED: COENZYME Q10 100 MG PO SCH (09:00)
[2021-09-28] MEDS ORDERED: ALBUT/IPRATROP 3MG/0.5MG NEB 3 ML VIAL NEB PRN (10:35)
--- NOTE | 2021-09-28 14:46 | Hospitalist Progress Note ---
Date of Service September 28, 2021 Assessment & Plan (1) RLL pneumonia: Plan: 89 yo M from [facility] with PMHx of CKD stage III, HTN, BPH, Alzheimer's dementia, DM II presented 09/27 to our ED w/ c/o getting cold overnight and shivering a lot but denied fever a/w disorientation at times per family member. En route to the hospital, pt vomited. He is being managed for the following: #. RLL pneumonia #. Likely aspiration pneumonia #. Hypoxia #. Generalized weakness/Metabolic encephalopthy: pt w/ increased confusion from his baseline, admitting CT head w/ no acute findings. resolved. COVID, influenza swab and MRSA swab negative. Admitting Pro-Yoni elevated at 175 and lactate elevated at 3.3. No SIRS POA. Admitting CXR and admitting CTAP reviewed. Continue with med telemetry, Mucinex, DuoNebs as needed, Tessalon Perles. Continuing with Zosyn and azithromycin 09/27, change to Unasyn tomorrow. Wean down oxygen as tolerated, afebrile, WBC trending down. Follow-up 09/27 blood culture. #. CHAN over CKD stage III Admitting creatinine of 1.46, baseline around 1.0 -1.2 Likely prerenal secondary to dehydration from acute illness and vomiting. Creatinine trending down, WNL. #. Electrolyte abnormalities Monitor and replete as appropriate. #. Elevated troponin Appears chronically elevated, patient with no chest pain, admitting EKG with no acute changes. #. Other chronic medical conditions: DM type II, HTN, CKD stage III Sliding scale insulin while in hospital, continue with/resume other home meds as and when appropriate. #. DVT prophylaxis: Heparin subcu #. CODE STATUS: Full #. Dispo: Likely in next 1 to 2 days. Admission and Anticipated Discharge Date Admission Date: September 27, 2021 Subjective Patient seen and examined at bedside for follow-up of right lower lobe pneumonia, hypoxia and generalized weakness. Patient was lying in bed, on 2 L nasal cannula oxygen, NAD, no new acute events overnight. Patient reports eating okay and moving bowels okay. Patient reports cough with occasional clear mucus. Patient denies headache/dizziness/chest pain/palpitation/sore throat/belly pain/other review of symptoms. Patient reports feeling better. Physical Exam Physical Exam: GENERAL: Alert and oriented x3. NAD, on 2L NC O2. HEENT: No pallor, no icterus. Pupils equal, round and reactive to light. Oral mucosa moist. NECK: No JVD, no neck masses. HEART: S1 and S2 heard. Regular rate and rhythm. No murmur, no gallop. RESPIRATORY SYSTEM: Normal AP diameter. No accessory muscle use. No wheezing, RLL crackles > L base. ABDOMEN: Soft, bowel sounds present, nontender, no distention. CENTRAL NERVOUS SYSTEM: No facial droop. Speech is clear. Obeys simple commands. Moves extremities. EXTREMITIES: No edema, no erythema seen. Results & Data Results & Data ([facility]) Vital Signs (Past 12 Hours) Vital Signs Temp Pulse Resp BP Pulse Ox 09/28/21 13:26 97 09/28/21 10:51 36.5 C 67 18 148/74 H 97 09/28/21 07:49 36.8 C 72 18 130/72 95 09/28/21 07:37 71 20 93 09/28/21 03:03 69 18 109/63 97 (1) RLL pneumonia Pneumonia type: due to unspecified organism Qualified Code(s): J18.9 - Pneumonia, unspecified organism
[2021-09-28] MEDS ORDERED: carvediloL 12.5 MG TAB PO SCH (21:00)
[2021-09-29] MEDS: PIPERACILLIN/TAZOBACTAM 4.5 GM in DEXTROSE 5% 100 ML IV SCH ×2 (05:56→14:04)
[2021-09-29 07:31] LABS: BUN Creatinine Ratio 15.8 (10-20); Bilirubin,Total 0.9 mg/dl (0.2-1.0); Calcium 8.2 mg/dl (8.5-10.1); Creatinine Clr Calc Pharmacy 42.5 ml/min; Est GFR (African American) 65.7 ml/min; Est GFR (Non-African American) 56.7 ml/min; Globulin 2.9 gm/dl (2.5-4.0); Potassium 3.9 mmol/L (3.5-5.1); Total Protein 5.9 gm/dl (6.0-8.3)
[2021-09-29 07:48] LABS: Hematocrit (blood only) 36.2 % (42-52); Hemoglobin 12.7 g/dL (14.0-18.0); Mean Corpuscular Hemoglobin 32.2 pg (25-34); Mean Corpuscular Hgb Conc 35.1 g/dL (32-36); Mean Corpuscular Volume 91.9 fL (80-100); Platelet Count 272 K/uL (130-400); RDW Coefficient of Variation 12.9 % (11.5-14.5); RDW Standard Deviation 43.5 fL (36.4-46.3); Red Blood Count 3.94 M/uL (4.7-6.1); White Blood Count 11.72 K/uL (4.8-10.8)
[2021-09-29] MEDS: MULTIVITAMIN TAB PO SCH (08:09)
[2021-09-29] MEDS: CHOLECALCIFEROL 1,000 UNITS 25 MCG TAB PO SCH (08:09)
[2021-09-29] MEDS: BENZONATATE 100 MG CAPSULE PO SCH ×3 (08:09→20:02)
[2021-09-29] MEDS: guaiFENesin 600 MG TABCR PO SCH ×2 (08:09→20:01)
[2021-09-29] MEDS: ASPIRIN 81 MG ECTAB PO SCH (08:09)
[2021-09-29] MEDS: LOSARTAN POTASSIUM 50 MG TAB PO SCH (08:09)
[2021-09-29] MEDS: AZITHROMYCIN 250 MG TAB PO SCH (08:09)
[2021-09-29] MEDS: CYANOCOBALAMIN (B-12) 100 MCG TABLET PO SCH (08:09)
[2021-09-29] MEDS: DONEPEZIL HCL 5 MG TAB PO SCH (08:09)
[2021-09-29] MEDS: HEPARIN SOD 5,000 UNIT/0.5 ML VIAL SQ SCH ×2 (08:10→20:02)
[2021-09-29] MEDS: carvediloL 12.5 MG TAB PO SCH ×2 (08:10→20:00)
[2021-09-29] MEDS: INSULIN ASPART PER UNIT SC SCH ×4 (08:17→20:26)
--- NOTE | 2021-09-29 17:36 | Hospitalist Progress Note ---
Date of Service September 29, 2021 Assessment & Plan (1) RLL pneumonia: Plan: 89 yo M from [facility] with PMHx of CKD stage III, HTN, BPH, Alzheimer's dementia, DM II presented 09/27 to our ED w/ c/o getting cold overnight and shivering a lot but denied fever a/w disorientation at times per family member. En route to the hospital, pt vomited. He is being managed for the following: #. RLL pneumonia #. Likely aspiration pneumonia #. Hypoxia #. Generalized weakness/Metabolic encephalopthy: pt w/ increased confusion from his baseline, admitting CT head w/ no acute findings. resolved. COVID, influenza swab and MRSA swab negative. Admitting Pro-Yoni elevated at 175 and lactate elevated at 3.3. No SIRS POA. Admitting CXR and admitting CTAP reviewed. Continue with med telemetry, Mucinex, DuoNebs as needed, Tessalon Perles. Zosyn and azithromycin 09/27 --> Unasyn 09/29 + zithro On RA, afebrile, WBC trending down. Follow-up 09/27 blood culture --No growth so far. #. CHAN over CKD stage III Admitting creatinine of 1.46, baseline around 1.0 -1.2 Likely prerenal secondary to dehydration from acute illness and vomiting. Resolved. #. Electrolyte abnormalities Monitor and replete as appropriate. #. Elevated troponin Appears chronically elevated, patient with no chest pain, admitting EKG with no acute changes. #. Other chronic medical conditions: DM type II, HTN, CKD stage III Sliding scale insulin while in hospital, continue with/resume other home meds as and when appropriate. #. DVT prophylaxis: Heparin subcu #. CODE STATUS: Full #. Dispo: Stable for DC. Awaiting placement Admission and Anticipated Discharge Date Admission Date: September 27, 2021 Subjective Patient seen and examined at bedside for follow-up of right lower lobe pneumonia, hypoxia and generalized weakness. Patient was lying in bed, on RA, NAD, no new acute events overnight. Patient reports eating okay and moving bowels okay. Patient reports cough with occasional clear mucus, reports decreasing cough. Patient denies headache/dizziness/chest pain/palpitation/sore throat/belly pain/other review of symptoms. Patient reports feeling better. Physical Exam Physical Exam: GENERAL: Alert and oriented x3. NAD, on RA HEENT: No pallor, no icterus. Pupils equal, round and reactive to light. Oral mucosa moist. NECK: No JVD, no neck masses. HEART: S1 and S2 heard. Regular rate and rhythm. No murmur, no gallop. RESPIRATORY SYSTEM: Normal AP diameter. No accessory muscle use. No wheezing, no crackles. ABDOMEN: Soft, bowel sounds present, nontender, no distention. CENTRAL NERVOUS SYSTEM: No facial droop. Speech is clear. Obeys simple commands. Moves extremities. EXTREMITIES: No edema, no erythema seen. Results & Data Results & Data ([facility]) Vital Signs (Past 12 Hours) Vital Signs Temp Pulse Pulse Resp BP Pulse Ox 09/29/21 16:48 68 09/29/21 14:51 36.4 C L 70 20 163/84 H 97 09/29/21 11:32 36.3 C L 66 20 164/91 H 98 09/29/21 08:00 62 09/29/21 06:19 36.4 C L 67 16 183/83 H 96 (1) RLL pneumonia Pneumonia type: due to unspecified organism Qualified Code(s): J18.9 - Pneumonia, unspecified organism
[2021-09-29] MEDS: AMPICILLIN/SULBACTAM SOD 3,000 MG in 0.9 % SODIUM CHLORIDE 100 ML IV SCH ×2 (17:59→23:22)
[2021-09-30] MEDS: AMPICILLIN/SULBACTAM SOD 3,000 MG in 0.9 % SODIUM CHLORIDE 100 ML IV SCH ×3 (05:02→17:28)
[2021-09-30] MEDS: BENZONATATE 100 MG CAPSULE PO SCH ×3 (08:20→20:26)
[2021-09-30] MEDS: CYANOCOBALAMIN (B-12) 100 MCG TABLET PO SCH (08:20)
[2021-09-30] MEDS: guaiFENesin 600 MG TABCR PO SCH ×2 (08:20→20:26)
[2021-09-30] MEDS: carvediloL 12.5 MG TAB PO SCH ×2 (08:20→20:26)
[2021-09-30] MEDS: ASPIRIN 81 MG ECTAB PO SCH (08:20)
[2021-09-30] MEDS: AZITHROMYCIN 250 MG TAB PO SCH (08:20)
[2021-09-30] MEDS: CHOLECALCIFEROL 1,000 UNITS 25 MCG TAB PO SCH (08:20)
[2021-09-30] MEDS: MULTIVITAMIN TAB PO SCH (08:21)
[2021-09-30] MEDS: DONEPEZIL HCL 5 MG TAB PO SCH (08:21)
[2021-09-30] MEDS: HEPARIN SOD 5,000 UNIT/0.5 ML VIAL SQ SCH ×2 (08:21→20:26)
[2021-09-30] MEDS: LOSARTAN POTASSIUM 50 MG TAB PO SCH (08:21)
[2021-09-30] MEDS: INSULIN ASPART PER UNIT SC SCH ×4 (08:28→20:27)
[2021-09-30 08:49] LABS: Hematocrit (blood only) 42.9 % (42-52); Hemoglobin 14.8 g/dL (14.0-18.0); Mean Corpuscular Hemoglobin 31.8 pg (25-34); Mean Corpuscular Hgb Conc 34.5 g/dL (32-36); Mean Corpuscular Volume 92.1 fL (80-100); Mean Platelet Volume 9.7 fL (7.4-10.4); Platelet Count 308 K/uL (130-400); RDW Standard Deviation 43.4 fL (36.4-46.3); Red Blood Count 4.66 M/uL (4.7-6.1); White Blood Count 9.61 K/uL (4.8-10.8)
[2021-09-30 09:04] LABS: BUN Creatinine Ratio 14.2 (10-20); Calcium 8.9 mg/dl (8.5-10.1); Creatinine Clr Calc Pharmacy 40.4 ml/min; Est GFR (African American) 61.8 ml/min; Est GFR (Non-African American) 53.3 ml/min; Magnesium 1.9 mg/dl (1.7-2.4)
--- NOTE | 2021-09-30 16:13 | Hospitalist Progress Note ---
Date of Service September 30, 2021 Assessment & Plan (1) RLL pneumonia: Plan: 89 yo M from [facility] with PMHx of CKD stage III, HTN, BPH, Alzheimer's dementia, DM II presented 09/27 to our ED w/ c/o getting cold overnight and shivering a lot but denied fever a/w disorientation at times per family member. En route to the hospital, pt vomited. He is being managed for the following: #. RLL pneumonia #. Likely aspiration pneumonia #. Hypoxia #. Generalized weakness/Metabolic encephalopthy: pt w/ increased confusion from his baseline, admitting CT head w/ no acute findings. resolved. COVID, influenza swab and MRSA swab negative. Admitting Pro-Yoni elevated at 175 and lactate elevated at 3.3. No SIRS POA. Admitting CXR and admitting CTAP reviewed. Continue with Mucinex, DuoNebs as needed, Tessalon Perles. Zosyn and azithromycin 09/27 --> Unasyn 09/29 + zithro --> change to PO [place]. On RA, afebrile, WBC nl Follow-up 09/27 blood culture --No growth so far. #. CHAN over CKD stage III Admitting creatinine of 1.46, baseline around 1.0 -1.2 Likely prerenal secondary to dehydration from acute illness and vomiting. Resolved. #. Electrolyte abnormalities Monitor and replete as appropriate. #. Elevated troponin Appears chronically elevated, patient with no chest pain, admitting EKG with no acute changes. #. Other chronic medical conditions: DM type II, HTN, CKD stage III Sliding scale insulin while in hospital, continue with/resume other home meds as and when appropriate. #. DVT prophylaxis: Heparin subcu #. CODE STATUS: Full #. Dispo: Stable for DC. Awaiting placement Admission and Anticipated Discharge Date Admission Date: September 27, 2021 Subjective Patient seen and examined at bedside for follow-up of right lower lobe pneumonia, hypoxia and generalized weakness. Patient was sitting up in chair, on RA, NAD, no new acute events overnight. Patient reports eating okay and moving bowels okay. Patient reports decreasing cough. Patient denies headache/dizziness/chest pain/palpitation/sore throat/belly pain/other review of symptoms. Patient reports feeling better. Awaiting placement. Physical Exam Physical Exam: GENERAL: Alert and oriented x3. NAD, on RA HEENT: No pallor, no icterus. Pupils equal, round and reactive to light. Oral mucosa moist. NECK: No JVD, no neck masses. HEART: S1 and S2 heard. Regular rate and rhythm. No murmur, no gallop. RESPIRATORY SYSTEM: Normal AP diameter. No accessory muscle use. No wheezing, no crackles. ABDOMEN: Soft, bowel sounds present, nontender, no distention. CENTRAL NERVOUS SYSTEM: No facial droop. Speech is clear. Obeys simple commands. Moves extremities. EXTREMITIES: No edema, no erythema seen. Results & Data Results & Data ([facility]) Vital Signs (Past 12 Hours) Vital Signs Temp Pulse Pulse Resp BP Pulse Ox 09/30/21 16:03 64 09/30/21 15:22 36.4 C L 70 20 151/80 H 96 09/30/21 11:31 36.7 C 70 20 126/73 94 09/30/21 10:58 95 09/30/21 08:00 85 09/30/21 06:20 36.7 C 68 18 186/75 H 98 (1) RLL pneumonia Pneumonia type: due to unspecified organism Qualified Code(s): J18.9 - Pneumonia, unspecified organism
[2021-10-01] MEDS: AMPICILLIN/SULBACTAM SOD 3,000 MG in 0.9 % SODIUM CHLORIDE 100 ML IV SCH ×2 (00:10→05:03)
[2021-10-01] MEDS: LOSARTAN POTASSIUM 50 MG TAB PO SCH (06:39)
[2021-10-01] MEDS: INSULIN ASPART PER UNIT SC SCH ×4 (08:38→20:19)
[2021-10-01] MEDS: HEPARIN SOD 5,000 UNIT/0.5 ML VIAL SQ SCH ×2 (08:46→20:19)
[2021-10-01] MEDS: guaiFENesin 600 MG TABCR PO SCH ×2 (08:47→20:18)
[2021-10-01] MEDS: carvediloL 12.5 MG TAB PO SCH ×2 (08:47→20:18)
[2021-10-01] MEDS: AZITHROMYCIN 250 MG TAB PO SCH (08:48)
[2021-10-01] MEDS: CHOLECALCIFEROL 1,000 UNITS 25 MCG TAB PO SCH (08:48)
[2021-10-01] MEDS: CYANOCOBALAMIN (B-12) 100 MCG TABLET PO SCH (08:48)
[2021-10-01] MEDS: ASPIRIN 81 MG ECTAB PO SCH (08:48)
[2021-10-01] MEDS: DONEPEZIL HCL 5 MG TAB PO SCH (08:48)
[2021-10-01] MEDS: BENZONATATE 100 MG CAPSULE PO SCH ×3 (08:48→20:18)
[2021-10-01] MEDS: MULTIVITAMIN TAB PO SCH (08:48)
[2021-10-01] MEDS: AMOXICILLIN/CLAVULANATE 875 MG TAB PO SCH ×2 (10:01→20:43)
--- NOTE | 2021-10-01 12:36 | Hospitalist Progress Note ---
Date of Service October 01, 2021 Assessment & Plan (1) RLL pneumonia: Plan: 89 yo M from [facility] with PMHx of CKD stage III, HTN, BPH, Alzheimer's dementia, DM II presented 09/27 to our ED with complaint of 'getting cold overnight and shivering a lot' but denied fever and was associated with disorientation at times per family member. En route to the hospital, he had vomiting. He is being managed for the following: CT chest 09/27- 1. No pulmonary emboli identified. 2. Multiple irregular nodular opacities within the posterior and medial basal segments of the right lower lobe suggestive of bronchopneumonia. 3. Cardiomegaly and coronary artery calcification, as above. #. RLL pneumonia, likely aspiration pneumonia - COVID, influenza swab and MRSA swab negative. Blood clx negative. Admitting Pro-Yoni elevated at 175, WC 29 and lactate elevated at 3.3. - Pneumonia on CTA chest- Admitting CTA chest and CT AP reviewed. - continue antibiotic course- S/p Zosyn and azithromycin 09/27 --> Unasyn 09/29 + zithro --> change to augmentin + zithro 10/01 - continue with Mucinex, DuoNebs as needed, Tessalon Perles. #. Hypoxia from above- resolved. now on room air. #. Generalized weakness/Metabolic encephalopathy: from above- resolved. Admitting CT head with no acute findings. #. CHAN over CKD stage III - Admitting creatinine of 1.46, baseline around 1.0 -1.2 - Resolved # Essential HTN- on losartan, coreg. BP on higher side- Will monitor for now. #. DM-2- BG reasonably controlled, on SSI prn. Will not be aggressive. DVT prophylaxis: Heparin subcu Dispo: PT recommended SNF- CM following- Awaiting placement, otherwise medically stable for discharge. Now on po antibiotic /7 Admission and Anticipated Discharge Date Admission Date: September 27, 2021 Subjective Feels fine. Denies any shortness of breath, cough, fever, chills, nausea, vomiting. States he ambulated around the jones with walker with the help of aides and felt good. Feels ready to get discharged. Physical Exam Physical Exam: General: Lying comfortably in bed, not in distress, on room air HEENT: EOMI, KVNG, MMM Chest: Clear breath sounds bilaterally, no wheezes or crackles CVS: Regular rate and rhythm, normal heart sounds, no murmur Abdomen: Soft, non tender, not distended, normal bowel sounds Neuro: Awake, alert, oriented, conversing well, non focal Extremities: No cyanosis, clubbing or edema Results & Data Results & Data ([facility]) Vital Signs (Past 12 Hours) Vital Signs Temp Pulse Pulse Resp BP Pulse Ox 10/01/21 11:32 36.8 C 65 20 161/77 H 94 10/01/21 10:03 66 172/84 H 10/01/21 07:56 64 10/01/21 07:52 36.6 C 67 18 195/82 H 97 10/01/21 06:02 36.4 C L 64 16 184/81 H 92 10/01/21 04:33 36.6 C 65 18 163/75 H 95 Medications Administered Current Inpatient Medications Acetaminophen (Acetaminophen 325 Mg Tab) 650 mg PO Q4H PRN PRN Reason: Moderate Pain Stop: 10/27/21 17:14 Albuterol (Albut/Ipratrop 3mg/0.5mg Neb 3 Ml Vial) 3 ml NEB Q4R PRN; Protocol PRN Reason: sob, wheeze Stop: 10/27/21 17:14 Amoxicillin/Clavulanate Potassium (Amoxicillin/Clavulanate 875 Mg Tab) 1 tab PO BID [facility]; Protocol Stop: 10/08/21 08:59 Last Admin: 10/01/21 10:01 Dose: 1 tab Documented by: Aspirin (Aspirin 81 Mg Ectab) 81 mg PO DAILY [facility] Stop: 10/28/21 08:59 Last Admin: 10/01/21 08:48 Dose: 81 mg Documented by: Benzonatate (Benzonatate 100 Mg Capsule) 100 mg PO TID [facility] Stop: 10/27/21 20:59 Last Admin: 10/01/21 08:48 Dose: 100 mg Documented by: Carvedilol (Carvedilol 12.5 Mg Tab) 12.5 mg PO BID [facility] Stop: 10/29/21 06:34 Last Admin: 10/01/21 08:47 Dose: 12.5 mg Documented by: Cyanocobalamin (Cyanocobalamin (B-12) 100 Mcg Tablet) 50 mcg PO DAILY [facility] Stop: 10/28/21 08:59 Last Admin: 10/01/21 08:48 Dose: 50 mcg Documented by: Dextrose (Dextrose 50% 50 Ml Syringe) 25 - 50 ml IV UD PRN; Protocol PRN Reason: Hypoglycemia Protocol Stop: 10/27/21 17:14 Docusate Sodium (Docusate Sodium 100 Mg Cap) 100 mg PO DAILY PRN PRN Reason: Constipation Stop: 10/27/21 16:31 Donepezil HCl (Donepezil Hcl 5 Mg Tab) 5 mg PO DAILY [facility] Stop: 10/28/21 08:59 Last Admin: 10/01/21 08:48 Dose: 5 mg Documented by: Glucagon (Glucagon For Inj 1 Mg Vial) 1 mg SQ UD PRN; Protocol PRN Reason: Hypoglycemia Protocol Stop: 10/27/21 17:14 Glucose (Glucose 10 Tabs/Tube) 4 - 8 tabs PO UD PRN; Protocol PRN Reason: Hypoglycemia Protocol Stop: 10/27/21 17:14 Glucose (Glucose 40% Gel 15 Gm Tube) 15 - 30 gm PO UD PRN; Protocol PRN Reason: Hypoglycemia Protocol Stop: 10/27/21 17:14 Guaifenesin (Guaifenesin 600 Mg Tabcr) 1,200 mg PO Q12 [facility] Stop: 10/27/21 20:59 Last Admin: 10/01/21 08:47 Dose: 1,200 mg Documented by: Heparin Sodium (Porcine) (Heparin Sod 5,000 Unit/0.5 Ml Vial) 5,000 units SQ Q12 [facility] Stop: 10/27/21 20:59 Last Admin: 10/01/21 08:46 Dose: 5,000 units Documented by: Insulin Aspart (Insulin Aspart Per Unit) 0 units SC ACHS [facility] Stop: 10/27/21 17:44 Last Admin: 10/01/21 12:23 Dose: 5 units Documented by: Losartan Potassium (Losartan Potassium 50 Mg Tab) 100 mg PO QAM [facility] Stop: 10/31/21 06:29 Last Admin: 10/01/21 06:39 Dose: 100 mg Documented by: Miscellaneous (Carbohydrates For Hypoglycemia ) 15 - 30 gm PO UD PRN PRN Reason: Hypoglycemia Protocol Stop: 10/27/21 17:14 Multivitamins (Multivitamin Tab) 1 tab PO DAILY [facility] Stop: 10/28/21 08:59 Last Admin: 10/01/21 08:48 Dose: 1 tab Documented by: Ondansetron HCl (Ondansetron Inj 2 Mg/Ml 2 Ml Vial) 4 mg IV Q4H PRN PRN Reason: Nausea And Vomiting Stop: 10/27/21 17:14 Polyethylene Glycol (Polyethylene (Miralax) 17 Gm Pack) 17 gm PO DAILY PRN PRN Reason: Constipation Stop: 10/27/21 16:11 Vitamin D (Cholecalciferol 1,000 Units 25 Mcg Tab) 1,000 units PO DAILY [facility] Stop: 10/28/21 08:59 Last Admin: 10/01/21 08:48 Dose: 1,000 units Documented by: (1) RLL pneumonia Pneumonia type: due to unspecified organism Qualified Code(s): J18.9 - Pneumonia, unspecified organism
[2021-10-02 07:55] LABS: Hematocrit (blood only) 39.5 % (42-52); Mean Corpuscular Hemoglobin 31.8 pg (25-34); Mean Corpuscular Hgb Conc 35.4 g/dL (32-36); Mean Corpuscular Volume 89.8 fL (80-100); Mean Platelet Volume 9.6 fL (7.4-10.4); Platelet Count 285 K/uL (130-400); RDW Coefficient of Variation 12.7 % (11.5-14.5); RDW Standard Deviation 41.3 fL (36.4-46.3); White Blood Count 8.77 K/uL (4.8-10.8)
[2021-10-02] MEDS: HEPARIN SOD 5,000 UNIT/0.5 ML VIAL SQ SCH (08:15)
[2021-10-02] MEDS: AMOXICILLIN/CLAVULANATE 875 MG TAB PO SCH (08:17)
[2021-10-02] MEDS: ASPIRIN 81 MG ECTAB PO SCH (08:18)
[2021-10-02] MEDS: LOSARTAN POTASSIUM 50 MG TAB PO SCH (08:18)
[2021-10-02] MEDS: DONEPEZIL HCL 5 MG TAB PO SCH (08:18)
[2021-10-02] MEDS: MULTIVITAMIN TAB PO SCH (08:18)
[2021-10-02] MEDS: guaiFENesin 600 MG TABCR PO SCH (08:18)
[2021-10-02] MEDS: carvediloL 12.5 MG TAB PO SCH (08:18)
[2021-10-02] MEDS: BENZONATATE 100 MG CAPSULE PO SCH (08:18)
[2021-10-02] MEDS: CYANOCOBALAMIN (B-12) 100 MCG TABLET PO SCH (08:19)
[2021-10-02] MEDS: CHOLECALCIFEROL 1,000 UNITS 25 MCG TAB PO SCH (08:19)
[2021-10-02 08:25] LABS: BUN Creatinine Ratio 16.7 (10-20); Blood Urea Nitrogen 17 mg/dl (6-23); Calcium 8.7 mg/dl (8.5-10.1); Carbon Dioxide 23 mmol/L (21-32); Chloride 105 mmol/L (98-107); Creatinine Clr Calc Pharmacy 47.5 ml/min; Est GFR (African American) 75.2 ml/min; Est GFR (Non-African American) 64.9 ml/min; Glucose 167 mg/dl (70-99(Fasting))
[2021-10-02] MEDS: INSULIN ASPART PER UNIT SC SCH (08:25)
[2021-10-02 09:48] LABS: Magnesium 1.8 mg/dl (1.7-2.4); Sodium 135 mmol/L (136-145)
--- NOTE | 2021-10-02 11:20 | Discharge Summary ---
Date of Service October 02, 2021 Admission HPI Per Admitting Provider This is a 89 yo M from [facility] with PMHx of CKD stage III, HTN, BPH, Alzheimer's dementia, DM II who presents with illness. Pt is present with his daughter and son in law. He remembers getting cold overnight and shivering a lot, but denies fevers, chills or sweats. He notes waking up this morning and not feeling himself. Daughter notes that he was disoriented and at some times wasn't making sense this morning and so EMS was called. He normally gets up and is able to walk to breakfast and has mild to moderate Dementia. It takes him some time to recall his daughter, Florence, name while she is sitting at bedside. He knows he is in a hospital and the year, not able to name the date. Pt denies any chest complaints. He is coughing and bringing up small amounts of mucous but denies feeling short of breath. En route to the hospital there is report that the patient vomited. Pt cannot recall this but is also not a very good historian due to Alzheimer's. WBC is found to be 29.24, sodium is slightly low at 133, BUN 24 and creatinine 1.46 up from a baseline of 1.0. The patient is not drinking much water during the day per family at bedside. Troponin is elevated at 71 however this is lower compared to his previous admission where it was 110 and 78 on rechecks. Patient was started on cefepime IV and azithromycin 500 in the ER. We will switch to IV Zosyn for risk of aspiration pneumonia and because he received Augmentin during his last hospital stay which was 2.5 weeks ago. Admission Exam Per Admitting Provider General: awake, alert, no apparent distress, + poor historian due to Alzheimer's dementia Head: Normocephalic, atraumatic ENT: PERRL, EOMI, no pharyngeal exudate, mucous membranes appear slightly dry Chest: On 2L via NC, was hypoxic in the 80s on room air, RR = 16-20 since being in the ER, nearly absent breath sounds in RLL, crackles in RML, crackles in LLL, no wheezing or rales Cardiac: Regular rate and rhythm, HR in the 90s at bedside, no murmur, no JVD, normal peripheral pulses, good capillary refill Abdominal: NABS x 4 quadrants, soft, nondistended, nontender to palpation, no rebound or guarding Extremities: Normal inspection, no peripheral edema or erythema, calfs nontender to palpation Psych: Normal mood and affect Neuro: AAO to self, knows he is in the hospital, struggles to name family member sitting at bedside, poor historian, strength intact bilaterally and rated 5/5, no motor deficits, speech is clear, no peripheral sensory deficits Principal Diagnosis RLL PNA with hypoxia Discharge Exam General: Lying comfortably in bed, not in distress, on room air HEENT: EOMI, KVNG, MMM Chest: Clear breath sounds bilaterally, no wheezes or crackles CVS: Regular rate and rhythm, normal heart sounds, no murmur Abdomen: Soft, non tender, not distended, normal bowel sounds Neuro: Awake, alert, conversing well, non focal Extremities: No cyanosis, clubbing or edema Discharge Data Allergies Allergy/AdvReac Type Severity Reaction Status Date / Time No Known Allergies Allergy Unverified 09/27/21 14:00 Consultations 09/27/21 13:58 ED Decision to Admit Stat Ordered Studies 09/27/21 11:46 CT head/brain wo con Stat 09/27/21 12:09 CT angio chest PE protocol Stat 09/27/21 12:13 CT abd pelvis IV con only Stat Laboratory Results WBC 8.77 K/uL (4.8-10.8) 10/02/21 07: RBC 4.40 M/uL (4.7-6.1) L 10/02/21 07:26 Hgb 14.0 g/dL (14.0-18.0) 10/02/21 07:26 Hct 39.5 % (42-52) L 10/02/21 07:26 MCV 89.8 fL (80-100) 10/02/21 07:26 MCH 31.8 pg (25-34) 10/02/21 07:26 MCHC 35.4 g/dL (32-36) 10/02/21 07:26 RDW Std Deviation 41.3 fL (36.4-46.3) 10/02/21 07:26 RDW Coeff of Betsy 12.7 % (11.5-14.5) 10/02/21 07:26 Plt Count 285 K/uL (130-400) 07/05/22 07:26 MPV 9.6 fL (7.4-10.4) 10/02/21 07:26 Immature Gran % (Auto) 1.0 % 09/27/21 11:55 Neut % (Auto) 88.1 % 09/27/21 11:55 Lymph % (Auto) 2.6 % 09/27/21 11:55 [place] % (Auto) 8.2 % 09/27/21 11:55 Eos % (Auto) 0.0 % 09/27/21 11:55 Baso % (Auto) 0.1 % 09/27/21 11:55 Neut # (Auto) 25.84 K/uL (1.4-6.5) H 09/27/21 11:55 Lymph # (Auto) 0.77 K/uL (1.2-3.4) L 09/27/21 11:55 [place] # (Auto) 2.40 K/uL (0.11-0.59) H 09/27/21 11:55 Eos # (Auto) 0.00 K/uL (0-0.5) 09/27/21 11:55 Baso # (Auto) 0.03 K/uL (0-0.2) 09/27/21 11:55 Immature Gran # (Auto) 0.30 K/uL (0.00-0.02) H 09/27/21 11:55 PT 11.4 Seconds (9.0-12.0) 09/27/21 11:55 INR 1.1 (0.9-1.1) 09/27/21 11:55 Sodium 135 mmol/L (136-145) L 10/02/21 08:45 Potassium 4.0 mmol/L (3.5-5.1) 10/02/21 09:55 Chloride 105 mmol/L (98-107) 10/02/21 07:26 Carbon Dioxide 23 mmol/L (21-32) 10/02/21 07:26 Anion Gap TNP 10/02/21 07:26 BUN 17 mg/dl (6-23) 10/02/21 07:26 Creatinine 1.02 mg/dl (0.6-1.4) 10/02/21 07:26 Est Cr Clr Drug Dosing 47.5 ml/min 10/02/21 07:26 Est GFR ( Amer) 75.2 ml/min 10/02/21 07:26 Est GFR (Non-Af Amer) 64.9 ml/min 10/02/21 07:26 BUN/Creatinine Ratio 16.7 (10-20) 10/02/21 07:26 Glucose 167 mg/dl (70-99(Fasting)) H 10/02/21 07:26 POC Glucose 152 mg/dl (70-99) H 10/02/21 07:36 Lactate 3.3 mmol/L (0.4-2.0) H* 09/27/21 16:10 Calcium 8.7 mg/dl (8.5-10.1) 10/02/21 07:26 Magnesium 1.8 mg/dl (1.7-2.4) 10/02/21 08:45 Total Bilirubin 0.9 mg/dl (0.2-1.0) 09/29/21 06:22 AST 14 U/L (13-39) 09/29/21 06:22 ALT 8 U/L (7-52) 09/29/21 06:22 Alkaline Phosphatase 58 U/L (34-104) 09/29/21 06:22 Troponin I High Sens 91.2 pg/ml (0-20) H* D 09/27/21 16:10 Total Protein 5.9 gm/dl (6.0-8.3) L 09/29/21 06:22 Albumin 3.0 gm/dl (3.4-5.0) L 09/29/21 06:22 Globulin 2.9 gm/dl (2.5-4.0) 09/29/21 06:22 Albumin/Globulin Ratio 1.0 (0.9-2) 09/29/21 06:22 Lipase 7 U/L (11-82) L 09/27/21 11:55 Procalcitonin 175.84 ng/ml (0-0.5) H 09/27/21 11:55 TSH 1.804 uIu/ml (0.300-4.500) 09/27/21 11:55 Urine Color Yellow 09/27/21 14:30 Urine Appearance Clear (Clear) 09/27/21 14:30 Urine pH 6.5 (4.5-7.5) 09/27/21 14:30 Ur Specific [place] > 1.045 (1.000-1.030) H 09/27/21 14:30 Urine Protein Negative (Negative) 09/27/21 14:30 Urine Glucose (UA) 1+ (Negative) H 09/27/21 14:30 Urine Ketones Negative (Negative) 09/27/21 14:30 Urine Blood Negative (Negative) 09/27/21 14:30 Urine Nitrite Negative (Negative) 09/27/21 14:30 Urine Bilirubin Negative (Negative) 09/27/21 14:30 Urine Urobilinogen Negative (Negative) 09/27/21 14:30 Ur Leukocyte Esterase Negative (Negative) 09/27/21 14:30 Nasal Screen MRSA (PCR) Negative (Negative) 09/27/21 Unknown SARS-CoV-2, RNA, NAAT NEGATIVE (NEGATIVE) 09/27/21 11:55 Impressions Chest X-Ray 09/27/21 11:46 SINGLE VIEW CHEST CLINICAL HISTORY: Change in mental status. FINDINGS: An AP, portable, upright chest radiograph is compared to study dated 09/03/2021. The heart is mildly enlarged noting atherosclerotic calcification of the thoracic aorta. The pulmonary vasculature is noncongested. Mild atelectasis is seen at the lung bases. The lungs and pleural spaces are otherwise clear. No pneumothorax is seen. The skeletal structures are osteopenic. The bony thorax is grossly intact. IMPRESSION: No active disease in the chest. ACT 112: Negative or not required by law. Electronically signed by: Gagandeep Villavicencio M.D. 09/27/2021 12:[address] 09/27/21 11:46 CT OF THE HEAD WITHOUT CONTRAST CLINICAL HISTORY: Confusion. COMPARISON STUDY: Head CT September 03, 2021. MRI of the brain September 04, 2021. TECHNIQUE: Helical axial images of the head were obtained without IV contrast. Automated exposure control was utilized for the study. A dose lowering technique was utilized adhering to the principles of ALARA. FINDINGS: No acute intracranial hemorrhage, midline shift or mass effect is present. 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 The ventricular system is unremarkable. The basal cisterns are patent. No extra-axial collections are present. There are no findings to suggest acute dural sinus thrombosis or acute territorial infarct. No significant calvarial abnormalities are present. Visualized portions of the sinuses and mastoid air cells are clear. IMPRESSION: No acute intracranial findings. No change in appearance of the brain. ACT 112: Negative or not required by law. Electronically signed by: Rocky Pinto M.D. 09/27/2021 1:26 PM Chest CTA 09/27/21 12:09 CT ANGIOGRAPHY OF THE CHEST, PULMONARY EMBOLUS PROTOCOL CLINICAL HISTORY: Hypoxia. Confusion. Evaluate for pulmonary embolus. COMPARISON STUDY: Chest radiograph September 27, 2021. TECHNIQUE: Following IV administration of 119 mL of Optiray, helical axial images of the chest were obtained utilizing the pulmonary embolus protocol. Maximal intensity projections and sagittal and coronal reformats were viewed on an independent 3D workstation. IV contrast was administered without complication. Automated exposure control was utilized for the study. A dose lowering technique was utilized adhering to the principles of ALARA. FINDINGS: No pulmonary emboli are identified. There is no thoracic aortic dissection. Mild cardiomegaly is noted. There is extensive coronary artery calcification. No enlarged axillary, mediastinal or hilar lymph nodes are present. A small hiatal hernia is noted. A few small thyroid nodules are incidentally noted. Note is made of multiple irregular nodular opacities within the posterior and medial basal segments of the right lower lobe. This suggests bronchopneumonia. Central airways are patent. There is no cavitation. Abdomen and pelvis CT will be reported separately. IMPRESSION: 1. No pulmonary emboli identified. 2. Multiple irregular nodular opacities within the posterior and medial basal segments of the right lower lobe suggestive of bronchopneumonia. 3. Cardiomegaly and coronary artery calcification, as above. ACT 112: Negative or not required by law. Electronically signed by: Rocky Pinto M.D. 09/27/2021 1:33 PM Abdomen/Pelvis CT 09/27/21 12:13 CT abd pelvis IV con only CLINICAL HISTORY: confusion, vomiting, elev wbc TECHNIQUE: Helical axial images of the abdomen and pelvis were obtained and displayed. Automated dose lowering techniques and/or adjustment according to patient size were utilized for this exam. This exam was performed with intravenous contrast. CT DOSE: 1904.87 mGy.cm COMPARISON: Comparison is made to CT abdomen pelvis 06/16/2020 FINDINGS: Lower chest: For findings above the diaphragm, please see CT chest performed same day. Liver: Unremarkable. No focal lesions are seen. Gallbladder and biliary tree: No calcified gallstones. Normal caliber wall. No intra- or extrahepatic biliary ductal dilation. Pancreas: Unremarkable, no focal lesions. Spleen: Splenule is incidentally noted. Adrenals: Unremarkable. Kidneys and ureters: Subcentimeter hypodensities are too small to characterize. Bladder: There is thickening of the bladder wall. Layering stones are noted within the bladder. No evidence of UVJ obstruction. Reproductive organs: Unremarkable. Bowel: Numerous thickened and enhancing loops of small bowel are seen in the left lower quadrant with associated vascular prominence. No evidence of obstruction is seen. A small hiatal hernia is seen. Lymph nodes Retroperitoneal: Unremarkable. Mesenteric: Subcentimeter lymph nodes are noted. These are most prominent in the left lower quadrant. Pelvic: Unremarkable. Peritoneum: A small amount of free fluid is seen. Vessels: Calcified and noncalcified aortic calcifications are seen. Abdominal wall: Unremarkable. Bones: Degenerative changes in the visualized spine. IMPRESSION: Numerous thickened loops of small bowel without evidence of obstruction, compatible with infectious/inflammatory enteritis. No evidence of appendicitis seen. ACT 112: Negative or not required by law. Electronically signed by: Eduardo Blanco M.D. 09/27/2021 1:42 PM Hospital Course (1) RLL pneumonia: 89 yo M from [facility] with PMHx of CKD stage III, HTN, BPH, Alzheimer's dementia, DM II presented 09/27 to our ED with complaint of 'getting cold overnight and shivering a lot' but denied fever and was associated with disorientation at times per family member. En route to the hospital, he had vomiting. He was found to have RLL PNA, suspected aspiration and was started on zosyn/zithromax with improvement and was changed to augmentin/zithro which he has been tolerating well. Hypoxia resolved and has been in room air, even with ambulation. States he ambulated round the jones 3 times yesterday with walker without issues. He is comfortable and stable for discharge back to his [facility]. He will be discharged on augmentin for 3 more days to complete the antibiotic course. #. RLL pneumonia, likely aspiration pneumonia - COVID, influenza swab and MRSA swab negative. Blood clx negative. Admitting Pro-Yoni elevated at 175, WC 29 and lactate elevated at 3.3. - Pneumonia on CTA chest- Admitting CTA chest and CT AP reviewed. No GI issues currently- tolerating diet well, No N/V/abd pain. - S/p Zosyn and azithromycin 09/27 --> Unasyn 09/29 + zithro --> change to augmentin + zithro 10/01. Continue augmentin for 3 more days at discharge. - continue with Mucinex, Tessalon Perles. CT chest 09/27- 1. No pulmonary emboli identified. 2. Multiple irregular nodular opacities within the posterior and medial basal segments of the right lower lobe suggestive of bronchopneumonia. 3. Cardiomegaly and coronary artery calcification, as above. #. Hypoxia from above- resolved. now on room air. #. Generalized weakness/Metabolic encephalopathy: from above- resolved. Admitting CT head with no acute findings. #. CHAN over CKD stage III - Admitting creatinine of 1.46, baseline around 1.0 -1.2 - Resolved, Cr down to 1.02. # Essential HTN- on losartan, coreg. BP on higher side and losartan increased to 100 mg daily. #. DM-2- BG reasonably controlled, avoid being aggressive with BG control. Resume home metformin. Total Time Total Time Spent Total Time Spent (In Minutes): 40 Discharge Plan Discharge Items Patient Disposition: Personal Skilled Nursing Reason For Visit: RLL PNEUMONIA, HYPOXIA Discharge Diagnosis: RLL PNA Activity: Resume your previous activity Non-emergency contact: Primary Care Provider Call non-emergency contact if: you have any medication questions, your symptoms worsen and you have a fever Follow-up/Referrals: Ludin Zapata Jones [Primary Care Provider] - Diet: Regular Addtl Attending Provider Instructions: continue augmentin for 3 more days. we have increased your losartan to 100 mg daily for your high blood pressure. follow up with your family doctor in a week Pending Studies at Discharge: No Stand-Alone Forms: My [employer], Smoking Cessation Medications and DC Order Prescriptions: New benzonatate 100 mg Capsule 100 mg PO TID Qty: 10 RF: 0 guaifenesin [Mucinex] 600 mg Tablet Extended Release 12hr 1,200 mg PO Q12 Qty: 6 RF: 0 amoxicillin-pot clavulanate 875-125 mg tablet 1 tab PO BID Qty: 6 RF: 0 Continued donepezil 5 mg tablet 5 mg PO DAILY RF: 0 cholecalciferol (vitamin D3) 25 mcg (1,000 unit) Capsule 25 mcg PO DAILY RF: 0 escitalopram oxalate 10 mg tablet 10 mg PO DAILY RF: 0 aspirin 81 mg Tablet 81 mg PO DAILY RF: 0 polyethylene glycol 3350 [Miralax] 17 gram/dose Powder 17 g PO DAILY PRN (Reason: Constipation) RF: 0 carvedilol 12.5 mg Tablet 12.5 mg PO BID Qty: 60 RF: 0 multivitamin Tablet 1 tab PO DAILY RF: 0 acetaminophen [Tylenol] 325 mg Tablet 650 mg PO Q4 PRN (Reason: .MILD PAIN/FEVER=<100) RF: 0 cyanocobalamin (vitamin B-12) [Vitamin B-12] 100 mcg Tablet 50 mcg PO DAILY RF: 0 docusate sodium 100 mg Tablet 100 mg PO DAILY PRN (Reason: Constipation) RF: 0 coenzyme Q10 [Q-Sorb Co Q-10] 100 mg Capsule 100 mg PO DAILY RF: 0 metformin 500 mg tablet 500 mg PO QAM RF: 0 Changed losartan 50 mg Tablet 100 mg PO QAM Qty: 30 RF: 0 Discharge Orders: Discharge Order (Routine); Ordered 10/02/21 Ordered By: Hiram Negro Admission Data Admit Date/Time: 09/27/21 14:21 Attending Provider: Hiram Negro Admit Provider: Deja Jacobs I. Primary Care Provider: Ludin Zapata Jones Other Providers: Ludin Zapata Jones ; Deja Jacobs I. Other Interventions: Discharge Summary Assessment (RN) Last Done: 10/02/21 10:08
== END 2021-10-02 11:15 | disposition home or self-care (01) | DRG 177 ==
LOC: ED 11:35 → 2N 14:21 → SUATTDRO 14:21 → 2N 16:30